=== PATIENT | female | born 1950 | race Caucasian/White ===

== ENCOUNTER → 2017-01-01 | Outpatient (CLI) | payer MEDICARE ==
[2015-02-11 10:59] VITALS: BP 143/76
[~2017-01-01] MED LIST: ASPI325T4 PO; CLON1TAB3 PO; CRESTOR20 MG PO; EZET10TA3 PO; FURO40TA4 PO; HYDR-2666 PO; LISI2.5T PO; LORA1TAB PO; METO25TA9 PO; NITR0.4T SL; OMEP20TA PO; OMEP40CA5 PO; POTA20TA12 PO; PRAS10TA9 PO; TRAZ100T12 PO; [UNRECOGNIZED DRUG - CODE] PO
--- NOTE | 2017-01-01 11:33 | KCIC ---
PROCEDURE DEXA. HISTORY Postmenopausal screening. COMPARISON None. FINDINGS BMD: (g/cm2) - AP Spine Total (L1-L4): 1.094 - Total left Hip: 0.965 T-Score: - AP Spine Total (L1-L4): 0.4 - Total left Hip: 0.2 Z-Score: - AP Spine Total (L1-L4): 2.1 - Total left Hip: 1.4 World Health Organization criteria for BMD interpretation classify patients as Normal (T-score at or above -1.0), Osteopenic (T-score between -1.0 and -2.5), or Osteoporotic (T-score at or below -2.5). IMPRESSION Normal bone mineral density in the left hip and spine. Electronically signed by: Erick Redman MD (January 01, 2017 11:31:39)
--- NOTE | 2017-01-01 12:44 | KCIC ---
Bilateral digital screening mammograms with CAD: HISTORY COMPARISON Comparison is made to previous studies dated 05/18/2011. FINDINGS Breast density category B. The skin and nipples show no abnormalities. No abnormal lymph nodes are seen in the axilla. The breast parenchyma shows scattered fibroglandular density. There appears to be a small 7 millimeter nodular density at approximately the 10 o'clock B position of the right breast. This shows no associated calcifications. Further evaluation with ultrasound is recommended. There are no other dominant masses, suspicious calcifications or architectural distortions. Benign appearing calcifications are present IMPRESSION Small nodular density at the 9 o'clock B position of the right breast measuring approximately 7 millimeters in size. Recommend further evaluation with ultrasound. This study was interpreted with the benefit of Computerized Aided Detection (CAD). Mammography is not 100% sensitive in detecting breast cancer. Therefore, a self breast exam and a clinical breast exam are very important. A negative mammogram does not negate a clinically suspicious finding and should not result in a delay in biopsying a clinically suspicious abnormality. BI-RADS category 0: Incomplete. Ultrasound followup is recommended. This patient's information has been entered into a reminder system for the patient to be notified with the results of this examination and a target date for her next mammograms. Electronically signed by: Ramona Neff MD (January 01, 2017 12:42:45)
== END | disposition home or self-care (01) ==
LOC: KCIC DEXA 10:11
PROVIDERS: ATTEND Family Medicine
DX: Z12.31 Encounter for screening mammogram for malignant neoplasm of breast (principal); Z13.820 Encounter for screening for osteoporosis; Z78.0 Asymptomatic menopausal state
CPT/HCPCS: 77080; G0202; 77067

== ENCOUNTER → 2017-01-07 | Outpatient (CLI) | payer MEDICARE ==
[2015-02-11 10:59] VITALS: BP 143/76
--- NOTE | 2017-01-07 11:10 | KCIC ---
Right breast ultrasound: Reason for examination: Nodular density on screening mammogram. Ultrasound examination of the right breast was performed in the area of mammographic concern and in the right axilla. In the 9:30 position 4 centimeters from the nipple, there is a hypoechoic lesion consistent with a complicated cyst measuring 7 millimeters in greatest dimension and showing posterior acoustic enhancement. No suspicious nodules are seen. No abnormal appearing lymph nodes are seen in the axilla. Impression: Hypoechoic circumscribed nodule consistent with a complicated cyst at the 9:30 position and corresponding to the mammographic area of concern. Recommend revaluation in 6 months with ultrasound. BI-RADS category 3: Probably benign. This patient's information has been entered into a reminder system for the patient to be notified with the results of this examination and a target date for her next mammograms. Electronically signed by: Ramona Neff MD (January 07, 2017 11:08:52)
== END | disposition home or self-care (01) ==
LOC: KCIC US 10:28
PROVIDERS: ATTEND Family Medicine
DX: R92.8 Other abnormal and inconclusive findings on diagnostic imaging of breast (principal)
CPT/HCPCS: 76641

== ENCOUNTER → 2017-07-15 | Outpatient (CLI) | payer MEDICARE ==
[2015-02-11 10:59] VITALS: BP 143/76
[~2017-07-15] MED LIST changes: -ASPI325T4 PO; +ASPI325T8 PO; +EZET10TA18 PO; -EZET10TA3 PO; -HYDR-2666 PO; +HYDR-2758 PO; +METO-239 PO; -METO25TA9 PO; -OMEP20TA PO; +OMEP20TA8 PO
--- NOTE | 2017-07-15 11:29 | KCIC ---
Right breast ultrasound: Reason for examination: Follow-up right breast nodule. Comparison is made to previous study dated 01/07/2017. Ultrasound examination of the right breast was performed in the area of previous concern at the 9:30 position and at the right axilla. There continues to be a small hypoechoic lesion present measuring 3.5 mm in greatest dimension. This has decreased in size consistent with a regressing cyst. There are no new lesions identified. No abnormal appearing lymph nodes are seen in the right axilla. IMPRESSION: Decreased size of the nodule at the 9:30 position which probably represents a regressing cyst. Recommend routine mammographic follow-up. BI-RADS Category 2: Benign. "Our facility is accredited by the [employer] Mammography Program." This patient's information has been entered into a reminder system for the patient to be notified with the results of her examination and a target date for the next mammogram. Electronically signed by: Radha Neff MD (07/15/2017 11:25 AM) [id number]
== END | disposition home or self-care (01) ==
LOC: KCIC US 09:17
PROVIDERS: ATTEND Family Medicine
DX: N63.10 Unspecified lump in the right breast, unspecified quadrant (principal)
CPT/HCPCS: 76641

== ENCOUNTER 2017-09-30 13:40 | Inpatient (IN) | payer MEDICARE ==
[2017-09-30] MEDS: ASPIRIN 325 MG TABLET PO (14:18)
[2017-09-30 14:42] LABS: ADD MAN DIFF? NO
[2017-09-30 14:50] LABS: BASO # 0.1 x10^3/uL (0.0-0.2); BASO % 1 % (0-3); EOS # 0.2 x10^3/uL (0.0-0.7); EOS % 2 % (0-3); HEMATOCRIT 39.6 % (36.0-47.0); HEMOGLOBIN 13.3 g/dL (12.0-15.5); LYMPH # 2.1 x10^3/uL (1.0-4.8); LYMPH % 24 % (24-48); MEAN CORPUSCULAR HEMOGLOBIN 30 pg (25-35); MEAN CORPUSCULAR HGB CONC 34 g/dL (31-37); MEAN CORPUSCULAR VOLUME 89 fL (79-100); MONO # 0.7 x10^3/uL (0.0-1.1); MONO % 8 % (0-9); NEUT # 5.7 x10^3uL (1.8-7.7); NEUT % 65 % (31-73); PLATELET COUNT 270 x10^3/uL (140-400); RED BLOOD COUNT 4.48 x10^6/uL (3.50-5.40); RED CELL DISTRIBUTION WIDTH 14.3 % (11.5-14.5); WHITE BLOOD COUNT 8.7 x10^3/uL (4.0-11.0)
[2017-09-30 14:59] LABS: ANION GAP 9 (6-14); BLOOD UREA NITROGEN 16 mg/dL (7-20); CALCIUM 8.7 mg/dL (8.5-10.1); CARBON DIOXIDE 29 mmol/L (21-32); CHLORIDE 102 mmol/L (98-107); CREATININE 0.6 mg/dL (0.6-1.0); GFR 100.6; GLUCOSE 119 mg/dL (70-99); POTASSIUM 3.6 mmol/L (3.5-5.1); SODIUM 140 mmol/L (136-145)
[2017-09-30] MEDS: ASPIRIN CHEWABLE 81 MG TABLET. PO (15:00)
[2017-09-30 15:04] LABS: CREATINE KINASE 68 U/L (26-192); MAGNESIUM 2.1 mg/dL (1.8-2.4)
[2017-09-30 15:13] LABS: CKMB MASS 0.6 ng/mL (0.0-3.6)
[2017-09-30 15:15] LABS: CREATINE KINASE 71 U/L (26-192)
[2017-09-30 15:28] LABS: TROPONINI < 0.017 ng/mL (0.000-0.055)
[2017-09-30] MEDS: ONDANSETRON PF 4 MG/2 ML VIAL. IV (15:37)
[2017-09-30] MEDS: NITROGLYCERIN SUBLINGUAL 0.4 MG BOTTLE OF 25. SL ×3 (15:37→16:05)
[2017-09-30] MEDS ORDERED: ONDANSETRON PF 4 MG/2 ML VIAL. IV (15:45)
[2017-09-30] MEDS: fentaNYL PF VIAL 100 MCG/2 ML VIAL IV (15:56)
[2017-09-30] MEDS: FAMOTIDINE 20 MG/2 ML VIAL IVP (15:58)
[2017-09-30] MEDS: NITROGLYCERIN OINT 1 GM PACKET. TP (16:21)
[2017-09-30] MEDS: MORPHINE SULFATE 2 MG/ML DISP.SYRIN. IV ×3 (16:33→21:23)
[2017-09-30] MEDS ORDERED: ACETAMINOPHEN 325 MG TABLET. PO (17:15)
[2017-09-30] MEDS ORDERED: hydrALAZINE 20 MG/ML VIAL. IVP (17:15)
[2017-09-30] MEDS ORDERED: DOCUSATE SODIUM 100 MG CAPSULE. PO (17:15)
[2017-09-30] MEDS ORDERED: traMADol 50 MG TABLET PO (17:15)
[2017-09-30] MEDS: ENOXAPARIN 40 MG/0.4 ML SYRINGE. SQ (19:20)
[2017-09-30 19:24] LABS: TROPONINI < 0.017 ng/mL (0.000-0.055)
[2017-09-30] MEDS ORDERED: NITROGLYCERIN SUBLINGUAL 0.4 MG BOTTLE OF 25. SL (20:30)
[2017-09-30] MEDS ORDERED: FUROSEMIDE 40 MG TABLET. PO (20:30)
[2017-09-30] MEDS: EZETIMIBE 10 MG TABLET. PO (21:24)
[2017-09-30] MEDS: traZODone 100 MG TABLET. PO (21:24)
[2017-09-30] MEDS: ATORVASTATIN CALCIUM 40 MG TABLET. PO (21:24)
[2017-09-30] MEDS: METOPROLOL SUCC 24HR ER 25 MG TAB.ER.24H. PO (21:24)
[2017-09-30] MEDS: HYDROcodone/APAP 5/325MG 1 TAB TABLET PO (21:56)
[2017-09-30 22:07] LABS: TROPONINI < 0.017 ng/mL (0.000-0.055)
[2017-10-01] MEDS: MORPHINE SULFATE 2 MG/ML DISP.SYRIN. IV ×4 (00:55→23:00)
[2017-10-01] MEDS: ONDANSETRON PF 4 MG/2 ML VIAL. IV (03:59)
[2017-10-01 04:22] LABS: ADD MAN DIFF? NO
[2017-10-01 04:32] LABS: BASO % 1 % (0-3); EOS # 0.3 x10^3/uL (0.0-0.7); EOS % 4 % (0-3); HEMATOCRIT 37.8 % (36.0-47.0); HEMOGLOBIN 12.6 g/dL (12.0-15.5); LYMPH # 3.1 x10^3/uL (1.0-4.8); LYMPH % 40 % (24-48); MEAN CORPUSCULAR HEMOGLOBIN 30 pg (25-35); MEAN CORPUSCULAR HGB CONC 34 g/dL (31-37); MEAN CORPUSCULAR VOLUME 89 fL (79-100); MONO # 0.7 x10^3/uL (0.0-1.1); MONO % 9 % (0-9); NEUT # 3.7 x10^3uL (1.8-7.7); NEUT % 47 % (31-73); PLATELET COUNT 272 x10^3/uL (140-400); RED BLOOD COUNT 4.24 x10^6/uL (3.50-5.40); RED CELL DISTRIBUTION WIDTH 14.2 % (11.5-14.5); WHITE BLOOD COUNT 7.9 x10^3/uL (4.0-11.0)
[2017-10-01 04:55] LABS: ANION GAP 7 (6-14); BLOOD UREA NITROGEN 17 mg/dL (7-20); CALCIUM 8.1 mg/dL (8.5-10.1); CARBON DIOXIDE 30 mmol/L (21-32); CHLORIDE 103 mmol/L (98-107); CHOLESTEROL 119 mg/dL (0-200); CREATININE 0.7 mg/dL (0.6-1.0); GFR 84.2; GLUCOSE 106 mg/dL (70-99); HDLC 41 mg/dL (40-60); LDLC 45 mg/dL (0-100); NON-HDL CHOLESTEROL 78 mg/dL (0-129); POTASSIUM 3.2 mmol/L (3.5-5.1); SODIUM 140 mmol/L (136-145); TRIGLYCERIDES 165 mg/dL (0-150); VLDLC 33 mg/dL (0-40)
[2017-10-01 04:57] LABS: THYROID STIM HORMONE (TSH) 1.964 uIU/mL (0.358-3.74)
[2017-10-01 05:07] LABS: CHOLESTEROL/HDL RATIO 2.9
[2017-10-01] MEDS: PANTOPRAZOLE 40 MG TABLET.DR. PO (07:30)
[2017-10-01] MEDS: REGADENOSON 0.4 MG/5 ML DISP.SYRIN. IV (12:12)
[2017-10-01] MEDS: ASPIRIN 325 MG TABLET PO (13:34)
[2017-10-01] MEDS: POTASSIUM CHLORIDE 20 MEQ TABLET.ER. PO (13:34)
[2017-10-01] MEDS: HYDROcodone/APAP 5/325MG 1 TAB TABLET PO ×2 (13:35→20:32)
[2017-10-01] MEDS: METOPROLOL SUCC 24HR ER 25 MG TAB.ER.24H. PO ×2 (13:38→20:32)
[2017-10-01] MEDS: LISINOPRIL 2.5 MG TABLET PO (13:38)
[2017-10-01] MEDS: ENOXAPARIN 40 MG/0.4 ML SYRINGE. SQ (18:11)
[2017-10-01] MEDS: ATORVASTATIN CALCIUM 40 MG TABLET. PO (20:31)
[2017-10-01] MEDS: EZETIMIBE 10 MG TABLET. PO (20:32)
[2017-10-01] MEDS: clonazePAM 1 MG TABLET PO (20:32)
[2017-10-01] MEDS: traZODone 100 MG TABLET. PO (23:01)
[2017-10-02] MEDS: PANTOPRAZOLE 40 MG TABLET.DR. PO (08:17)
[2017-10-02] MEDS: ASPIRIN 325 MG TABLET PO (08:17)
[2017-10-02] MEDS: POTASSIUM CHLORIDE 20 MEQ TABLET.ER. PO (08:17)
[2017-10-02] MEDS: METOPROLOL SUCC 24HR ER 25 MG TAB.ER.24H. PO ×2 (08:18→20:40)
[2017-10-02] MEDS: LISINOPRIL 2.5 MG TABLET PO (08:18)
[2017-10-02] MEDS: clonazePAM 1 MG TABLET PO (09:19)
[2017-10-02] MEDS: HYDROcodone/APAP 5/325MG 1 TAB TABLET PO ×2 (09:20→14:03)
[2017-10-02] MEDS: ALPRAZolam 0.25 MG TABLET PO ×2 (14:04→20:40)
[2017-10-02] MEDS: ENOXAPARIN 40 MG/0.4 ML SYRINGE. SQ (17:27)
[2017-10-02] MEDS: ATORVASTATIN CALCIUM 40 MG TABLET. PO (20:40)
[2017-10-02] MEDS: traZODone 100 MG TABLET. PO (20:40)
[2017-10-02] MEDS: EZETIMIBE 10 MG TABLET. PO (20:40)
[2017-10-02] MEDS: MORPHINE SULFATE 2 MG/ML DISP.SYRIN. IV (22:09)
[2017-10-03] MEDS: HYDROcodone/APAP 5/325MG 1 TAB TABLET PO ×2 (00:16→20:35)
[2017-10-03] MEDS: MORPHINE SULFATE 2 MG/ML DISP.SYRIN. IV ×2 (01:14→22:27)
[2017-10-03] MEDS ORDERED: MORPHINE SULFATE 2 MG/ML DISP.SYRIN. IV (07:00)
[2017-10-03] MEDS ORDERED: HYDROmorphone 2 MG/ML VIAL IV (07:00)
[2017-10-03] MEDS ORDERED: LIDOCAINE 1% PF 2 ML VIAL. ID ×2 (07:00→08:00)
[2017-10-03] MEDS: IV RINGERS,LACTATED 1000ML 1,000 ML IV ×3 (07:46→15:46)
[2017-10-03] MEDS ORDERED: fentaNYL PF VIAL 100 MCG/2 ML VIAL IV ×2 (08:00)
[2017-10-03] MEDS ORDERED: MIDAZOLAM HCL/PF 2 MG/2 ML VIAL. IV (08:00)
[2017-10-03] MEDS: ALPRAZolam 0.25 MG TABLET PO ×3 (09:00→20:34)
[2017-10-03] MEDS ORDERED: LIDOCAINE 2% PF Vial for OR 5 ML VIAL. (10:59)
[2017-10-03] MEDS ORDERED: PROPOFOL 20 ML IV (10:59)
[2017-10-03] MEDS: SUCRALFATE 1 GM TABLET. PO ×3 (12:22→20:34)
[2017-10-03] MEDS: ASPIRIN 325 MG TABLET PO (12:22)
[2017-10-03] MEDS: LISINOPRIL 2.5 MG TABLET PO (12:22)
[2017-10-03] MEDS: METOPROLOL SUCC 24HR ER 25 MG TAB.ER.24H. PO ×2 (12:23→20:35)
[2017-10-03] MEDS: POTASSIUM CHLORIDE 20 MEQ TABLET.ER. PO (12:23)
[2017-10-03] MEDS: PANTOPRAZOLE 40 MG TABLET.DR. PO (16:43)
[2017-10-03] MEDS: ATORVASTATIN CALCIUM 40 MG TABLET. PO (20:34)
[2017-10-03] MEDS: traZODone 100 MG TABLET. PO (20:34)
[2017-10-03] MEDS: ENOXAPARIN 40 MG/0.4 ML SYRINGE. SQ (20:34)
[2017-10-03] MEDS: EZETIMIBE 10 MG TABLET. PO (20:35)
[2017-10-03] MEDS: PROCHLORPERAZINE 10 MG/2 ML VIAL. IV (22:27)
[2017-10-04] MEDS: PANTOPRAZOLE 40 MG TABLET.DR. PO (07:57)
[2017-10-04] MEDS: SUCRALFATE 1 GM TABLET. PO ×2 (07:57→11:39)
[2017-10-04] MEDS: ASPIRIN 325 MG TABLET PO (09:19)
[2017-10-04] MEDS: ALPRAZolam 0.25 MG TABLET PO ×2 (09:19→13:19)
[2017-10-04] MEDS: LISINOPRIL 2.5 MG TABLET PO (09:19)
[2017-10-04] MEDS: POTASSIUM CHLORIDE 20 MEQ TABLET.ER. PO (09:20)
[2017-10-04] MEDS: METOPROLOL SUCC 24HR ER 25 MG TAB.ER.24H. PO (09:20)
[2017-10-04] MEDS: ENOXAPARIN 40 MG/0.4 ML SYRINGE. SQ (09:22)
[2017-10-04] MEDS: ONDANSETRON PF 4 MG/2 ML VIAL. IV (13:19)
[2017-10-04] MEDS: ONDANSETRON ODT 4 MG TAB.RAPDIS. PO (15:52)
== END 2017-10-04 16:12 | disposition home or self-care (01) | DRG 392 ==
LOC: ER 13:40 → 5 NORTH 15:42
PROC: 0DB68ZX Excision of Stomach, Via Natural or Artificial Opening Endoscopic, Diagnostic (ICD-10-PCS; principal; 2017-10-03 11:00)
DX: K21.0 Gastro-esophageal reflux disease with esophagitis (principal); I31.3 Pericardial effusion (noninflammatory); I25.110 Atherosclerotic heart disease of native coronary artery with unstable angina pectoris; K76.0 Fatty (change of) liver, not elsewhere classified; Z68.41 Body mass index [BMI] 40.0-44.9, adult; K22.8 Other specified diseases of esophagus; E66.9 Obesity, unspecified; E78.00 Pure hypercholesterolemia, unspecified; E78.5 Hyperlipidemia, unspecified; F32.9 Major depressive disorder, single episode, unspecified; F41.9 Anxiety disorder, unspecified; G89.29 Other chronic pain; I10 Essential (primary) hypertension; I34.0 Nonrheumatic mitral (valve) insufficiency; G43.909 Migraine, unspecified, not intractable, without status migrainosus; K29.70 Gastritis, unspecified, without bleeding; G47.30 Sleep apnea, unspecified; K57.30 Diverticulosis of large intestine without perforation or abscess without bleeding; K64.9 Unspecified hemorrhoids; N60.09 Solitary cyst of unspecified breast; M19.90 Unspecified osteoarthritis, unspecified site; Z79.82 Long term (current) use of aspirin; Z79.899 Other long term (current) drug therapy; Z80.0 Family history of malignant neoplasm of digestive organs; Z87.891 Personal history of nicotine dependence; Z90.49 Acquired absence of other specified parts of digestive tract; Z90.710 Acquired absence of both cervix and uterus; Z95.5 Presence of coronary angioplasty implant and graft; Z88.8 Allergy status to other drugs, medicaments and biological substances; Z91.013 Allergy to seafood
CPT/HCPCS: 36415; 71045; 78452; 80048; 80061; 82550; 82553; 83735; 84443; 84484; 85025; 88305; 88342; 93005; 93017; 93306; 96374; 96375; 99285; 99285-25; A9500; J0780; J1650; J2270; J2405; J2704; J2785; J3010; J7120; Q0162; S0028

== ENCOUNTER 2018-03-21 07:00 | Emergency (ER) | payer MEDICARE ==
[2018-03-21] MEDS: diphenhydrAMINE 50 MG/ML VIAL IVP (09:19)
[2018-03-21] MEDS: PROCHLORPERAZINE 10 MG/2 ML VIAL. IV (09:19)
[2018-03-21 09:40] LABS: ADD MAN DIFF? NO
[2018-03-21 09:43] LABS: BASO % 1 % (0-3); EOS # 0.2 x10^3/uL (0.0-0.7); EOS % 3 % (0-3); HEMATOCRIT 41.5 % (36.0-47.0); LYMPH # 1.7 x10^3/uL (1.0-4.8); LYMPH % 26 % (24-48); MEAN CORPUSCULAR HEMOGLOBIN 30 pg (25-35); MEAN CORPUSCULAR HGB CONC 34 g/dL (31-37); MEAN CORPUSCULAR VOLUME 90 fL (79-100); MONO # 0.5 x10^3/uL (0.0-1.1); MONO % 7 % (0-9); NEUT # 4.2 x10^3uL (1.8-7.7); NEUT % 64 % (31-73); PLATELET COUNT 267 x10^3/uL (140-400); RED BLOOD COUNT 4.64 x10^6/uL (3.50-5.40); RED CELL DISTRIBUTION WIDTH 14.4 % (11.5-14.5); WHITE BLOOD COUNT 6.6 x10^3/uL (4.0-11.0)
[2018-03-21] MEDS: IV NORMAL SALINE 1000ML BAG 1,000 ML IV (09:48)
[2018-03-21] MEDS: KETOROLAC 30 MG/ML INJ. IV (09:49)
[2018-03-21 10:01] LABS: ANION GAP 8 (6-14); BLOOD UREA NITROGEN 11 mg/dL (7-20); CALCIUM 10.1 mg/dL (8.5-10.1); CARBON DIOXIDE 27 mmol/L (21-32); CHLORIDE 103 mmol/L (98-107); CREATININE 0.7 mg/dL (0.6-1.0); GLUCOSE 119 mg/dL (70-99); POTASSIUM 4.2 mmol/L (3.5-5.1); SODIUM 138 mmol/L (136-145)
== END 2018-03-21 11:21 | disposition home or self-care (01) ==
LOC: ER 07:00
DX: G43.909 Migraine, unspecified, not intractable, without status migrainosus (principal); E78.00 Pure hypercholesterolemia, unspecified; K21.9 Gastro-esophageal reflux disease without esophagitis; F32.9 Major depressive disorder, single episode, unspecified; F41.9 Anxiety disorder, unspecified; I10 Essential (primary) hypertension; I25.2 Old myocardial infarction; Z87.891 Personal history of nicotine dependence; Z95.5 Presence of coronary angioplasty implant and graft; Z88.2 Allergy status to sulfonamides; Z88.8 Allergy status to other drugs, medicaments and biological substances; Z91.013 Allergy to seafood
CPT/HCPCS: 36415; 70450; 80048; 85025; 96361; 96374; 96375; 99285-25; J0780; J1200; J1885; J7030

== ENCOUNTER → 2018-04-23 | Outpatient (CLI) | payer MEDICARE ==
[2018-03-21 11:15] VITALS: BP 156/79
[~2018-04-23] MED LIST changes: -CLON1TAB3 PO; +CLON1TAB4 PO; +PANT20TA2 PO; +SUCR1TAB35 PO; +TRAZ-86 PO; -TRAZ100T12 PO
[2018-04-23] MEDS: ZOLPIDEM 5 MG TABLET. PO ONE (22:30)
[2018-04-24] MEDS: ACETAMINOPHEN 500 MG TABLET PO ONE (03:15)
--- NOTE | 2018-04-24 13:29 | SLEEP ---
DATE OF STUDY: 04/23/2018 ATTENDING PHYSICIAN: Dr. Lisa Dewitt. The patient is 67 years old who weighs 170 pounds with a BMI of 34. The patient's [place] score was 6. The patient underwent a diagnostic sleep study at [facility]. During the night of study, the patient spent 420 minutes in bed and slept for 3 and 4 minutes with a sleep efficiency of 72%. Sleep latency was 31 minutes with absent REM sleep. Overall, sleep architecture showed increased stage I sleep, reduced stage II sleep, increased slow wave, which was 41% of total sleep time and absent REM sleep. During the night of study, the patient had 2 obstructive apneas, no mixed apneas and 2 central apneas. There were 17 hypopneas. The patient's apnea hypopnea index was 4 per hour, supine index 3 per hour and REM index was not available due to lack of REM sleep. EKG monitoring revealed normal sinus rhythm. No sustained arrhythmias were observed. Average heart rate was 94 beats per minute while asleep. Nocturnal oximetry study revealed a mean oxygen saturation of 90% with the lowest of 86%. 20% of time oxygen saturation remained between 80% and 89% and mostly between 88-90% suggesting hypoventilation. PLMS were seen at index of 17 per hour and 2 per hour caused EEG arousals. Due to low AHI, the patient did not meet the split night criteria for CPAP initiation. IMPRESSION: 1. No clinically significant sleep disorder breathing. The patient's AHI for the entire night was 4 per hour. 2. Mild nocturnal hypoxia related to hypoventilation. 3. Mild period limb movement of sleep. RECOMMENDATIONS: 1. The patient did not meet the split night criteria for CPAP initiation. 2. Weight loss is advised. 3. Avoid [employer] depressants. 4. PLMS does not need to be treated unless the patient has symptoms of restless legs during the day. ANNELIESE VARELA MD DR: SKYE/lorena JOB#: [id number] / [id number] LISA Ding MD
== END | disposition home or self-care (01) ==
LOC: SLPLAB 18:20
PROVIDERS: ATTEND Family Medicine
DX: G47.34 Idiopathic sleep related nonobstructive alveolar hypoventilation (principal); R35.1 Nocturia; I10 Essential (primary) hypertension; E78.00 Pure hypercholesterolemia, unspecified; K21.9 Gastro-esophageal reflux disease without esophagitis; I25.10 Atherosclerotic heart disease of native coronary artery without angina pectoris; Z90.49 Acquired absence of other specified parts of digestive tract; Z87.891 Personal history of nicotine dependence
CPT/HCPCS: 95810

== ENCOUNTER 2019-07-13 12:24 | Observation (INO) | payer MEDICARE ==
[~2019-07-13] VITALS: Ht 149.9 cm; Wt 86.3 kg
[~2019-07-13 12:24] MED LIST changes: -CLON1TAB4 PO; +CLONAZEPAM1 MG PO; -EZET10TA18 PO; +EZET10TA20 PO; -HYDR-2758 PO; +HYDR-2761 PO; -NITR0.4T SL; +NITR0.4T24 SL; +OMEP40CA45 PO; -OMEP40CA5 PO
[2019-07-13] MEDS ORDERED: diazePAM 5 MG TABLET PO ONE (13:00)
[2019-07-13] MEDS ORDERED: ASPIRIN CHEWABLE 81 MG TABLET. PO ONE (13:00)
[2019-07-13] MEDS ORDERED: MORPHINE SULFATE 4 MG/ML VIAL. IV ONE ×2 (13:00→17:30)
--- NOTE | 2019-07-13 13:01 | PHYS DOC ---
Past Medical History Past Medical History: Anxiety, Depression, GERD, High Cholesterol, Hypertension, ME, Migraines Past Surgical History: Angioplasty, Appendectomy, Cholecystectomy, Hysterectomy, Pacemaker, Other Additional Past Surgical Histo: stents x7,hiatal hernia Alcohol Use: None Drug Use: None Adult General Chief Complaint Chief Complaint: BACK INJURY HPI HPI Patient is a 68-year-old female who presents to the emergency department for evaluation. The patient states that she began having some upper back pain yesterday, left parascapular pain, which radiated towards her left arm and an teriorly towards her chest. The pain is worse with movement, as well as with physical exertion. She denies any shortness breath, nausea, vomiting, or diaphoresis. She went to a chiropractor, who found her blood pressure be elevated, and sent the patient to the emergency department. The patient has a history of hypertension but states that she did not take her antihypertensive medications today. EMS administered 2 nitroglycerin in route, which brought the patient's blood pressure down from 200 systolic to about 130 systolic. The patient does not have any dizziness, lightheadedness, numbness, or weakness. There are no alleviating or exacerbating factors to her symptoms, except as noted above. She has a history of prior coronary artery disease and states that her current symptoms feel somewhat similar to her prior cardiac events. Assuming a negative troponin, her HEART score is a 5. Review of Systems Review of Systems Constitutional: Denies fever or chills [] Eyes: Denies change in visual acuity, redness, or eye pain [] HENT: Denies nasal congestion or sore throat [] Respiratory: Denies cough or shortness of breath [] Cardiovascular: No additional information not addressed in HPI [] GI: Denies abdominal pain, nausea, vomiting, bloody stools or diarrhea [] : Denies dysuria or hematuria [] Musculoskeletal: Denies neck pain or joint pain [] Integument: Denies rash or skin lesions [] Neurologic: Denies headache, focal weakness or sensory changes [] Endocrine: Denies polyuria or polydipsia [] All other systems were reviewed and found to be within normal limits, except as documented in this note. Current Medications Current Medications Current Medications Medications (Trade) Dose Ordered Sig/Jeannine Start Time Stop Time Status Last Admin Dose Admin Aspirin (Children'S Aspirin) 324 mg 1X ONCE 07/13/19 13:00 07/13/19 13:01 DC Diazepam (Valium) 5 mg 1X ONCE 07/13/19 13:00 07/13/19 13:01 DC 07/13/19 13:47 5 MG Morphine Sulfate (Morphine Sulfate) 4 mg 1X ONCE 07/13/19 13:00 07/13/19 13:01 DC 07/13/19 13:50 4 MG Nitroglycerin (Nitro-Bid Oint) 1 inch 1X ONCE 07/13/19 13:15 07/13/19 13:16 DC 07/13/19 13:48 1 INCH Allergies Allergies Allergies Coded Allergies Type Severity Reaction Last Updated Verified shellfish derived Allergy Intermediate SEE COMMENT FOR IODINE 10/03/17 Yes sulfamethoxazole Allergy Intermediate 10/03/17 Yes trimethoprim Allergy Intermediate 10/03/17 Yes Physical Exam Physical Exam PHYSICAL EXAM: CONSTITUTIONAL: Well developed, well nourished HEAD: normocephalic, atraumatic EENT: PERRL, EOMI. Conjunctivae normal color, sclerae non-icteric; moist mucous membranes. NECK: Supple, non-tender; no meningismus. LUNGS: Lungs CTA, breathing even and unlabored. Normal air movement. HEART: Regular rate and rhythm, no murmur CHEST: No deformity; non-tender ABDOMEN: The abdomen is soft, and non-tender, no masses or bruits. EXTREM: Normal ROM; no deformity, no calf tenderness. Normal pulses palpable in all extremities. There is no pedal edema. SKIN: No rash; no diaphoresis NEURO: Alert; normal speech and cognition; CN's grossly intact; strength grossly intact without focal deficit. BACK: No CVA TTP. There is mild tenderness to palpation to left parascapular area, which reproduces the patient's pain.There is no bony tenderness to palpation of the thoracic or lumbar spine. Current Patient Data Vital Signs Vital Signs Date Time Temp Pulse Resp B/P (MAP) Pulse Ox O2 Delivery O2 Flow Rate FiO2 07/13/19 15:37 84 17 172/85 (114) 93 Room Air 07/13/19 12:35 98.2 98.2 Lab Values Laboratory Tests Test 07/13/19 16:25 White Blood Count 5.9 x10^3/uL (4.0-11.0) Red Blood Count 4.72 x10^6/uL (3.50-5.40) Hemoglobin 14.2 g/dL (12.0-15.5) Hematocrit 41.8 % (36.0-47.0) Mean Corpuscular Volume 89 fL (79-100) Mean Corpuscular Hemoglobin 30 pg (25-35) Mean Corpuscular Hemoglobin Concent 34 g/dL (31-37) Red Cell Distribution Width 14.3 % (11.5-14.5) Platelet Count 256 x10^3/uL (140-400) Neutrophils (%) (Auto) 57 % (31-73) Lymphocytes (%) (Auto) 32 % (24-48) Monocytes (%) (Auto) 7 % (0-9) Eosinophils (%) (Auto) 3 % (0-3) Basophils (%) (Auto) 1 % (0-3) Neutrophils # (Auto) 3.4 x10^3/uL (1.8-7.7) Lymphocytes # (Auto) 1.9 x10^3/uL (1.0-4.8) Monocytes # (Auto) 0.4 x10^3/uL (0.0-1.1) Eosinophils # (Auto) 0.2 x10^3/uL (0.0-0.7) Basophils # (Auto) 0.1 x10^3/uL (0.0-0.2) Sodium Level 137 mmol/L (136-145) Potassium Level 4.2 mmol/L (3.5-5.1) Chloride Level 103 mmol/L (98-107) Carbon Dioxide Level 28 mmol/L (21-32) Anion Gap 6 (6-14) Blood Urea Nitrogen 10 mg/dL (7-20) Creatinine 0.7 mg/dL (0.6-1.0) Estimated GFR (Cockcroft-Gault) 83.7 BUN/Creatinine Ratio 14 (6-20) Glucose Level 104 mg/dL (70-99) H Calcium Level 9.2 mg/dL (8.5-10.1) Magnesium Level 2.0 mg/dL (1.8-2.4) Total Bilirubin 0.2 mg/dL (0.2-1.0) Aspartate Amino Transferase (AST) 20 U/L (15-37) Alanine Aminotransferase (ALT) 17 U/L (14-59) Alkaline Phosphatase 105 U/L (46-116) Troponin I Quantitative < 0.017 ng/mL (0.000-0.055) AE-Xgm-P-Type Natriuretic Peptide 136 pg/mL (0-124) H Total Protein 7.1 g/dL (6.4-8.2) Albumin 3.1 g/dL (3.4-5.0) L Albumin/Globulin Ratio 0.8 (1.0-1.7) L Laboratory Tests 07/13/19 16:25 Laboratory Tests 07/13/19 16:25 EKG EKG Sinus rhythm at a rate of 86 beats for minute, leftward axis, normal intervals, nonspecific ST/T changes.[] Radiology/Procedures Radiology/Procedures PROCEDURE: PORTABLE CHEST 1V PORTABLE CHEST 1V History: Chest pain Comparison: 09/30/2017 Findings: Single view of the chest is submitted. There is again dual lead left electronic cardiac device. Cardiac silhouette is stable. There is no new lobar consolidation, pleural fluid, pneumothorax. Impression: 1. No acute radiographic abnormality is identified.[] Course & Med Decision Making Course & Med Decision Making Pertinent Labs and Imaging studies reviewed. (See chart for details) [] 5:05 PM:The patient's condition remains stable. I spoke with the hospitalist, who accepted the patient to the hospital for further evaluation and treatment. Due to the similarity between the current symptoms and the patient's reported cardiac symptoms, the patient be admitted to the hospital for further cardiac evaluation in definitively rule out Dragon Disclaimer Dragon Disclaimer This electronic medical record was generated, in whole or in part, using a voice recognition dictation system. Departure Departure Impression: Primary Impression: Chest pain Additional Impression: CAD (coronary artery disease) Disposition: 09 ADMITTED INPATIENT Admitting Physician: HIMTerese Condition: STABLE Referrals: JAZ VILLAREAL MD (PCP) Problem Qualifiers LUKE MOORE MD Jul 13, 2019 13:01
[2019-07-13] MEDS ORDERED: NITROGLYCERIN OINT 1 GM PACKET. TP ONE (13:15)
--- NOTE | 2019-07-13 13:34 | RAD ---
PORTABLE CHEST 1V History: Chest pain Comparison: 09/30/2017 Findings: Single view of the chest is submitted. There is again dual lead left electronic cardiac device. Cardiac silhouette is stable. There is no new lobar consolidation, pleural fluid, pneumothorax. Impression: 1. No acute radiographic abnormality is identified. Electronically signed by: Gerald Godwin MD (07/13/2019 1:31 PM) [id number]
[2019-07-13 16:37] LABS: BASO # 0.1 x10^3/uL (0.0-0.2); BASO % 1 % (0-3); EOS # 0.2 x10^3/uL (0.0-0.7); EOS % 3 % (0-3); HEMATOCRIT 41.8 % (36.0-47.0); HEMOGLOBIN 14.2 g/dL (12.0-15.5); LYMPH # 1.9 x10^3/uL (1.0-4.8); LYMPH % 32 % (24-48); MEAN CORPUSCULAR HEMOGLOBIN 30 pg (25-35); MEAN CORPUSCULAR HGB CONC 34 g/dL (31-37); MEAN CORPUSCULAR VOLUME 89 fL (79-100); MONO # 0.4 x10^3/uL (0.0-1.1); MONO % 7 % (0-9); NEUT # 3.4 x10^3/uL (1.8-7.7); NEUT % 57 % (31-73); PLATELET COUNT 256 x10^3/uL (140-400); RED BLOOD COUNT 4.72 x10^6/uL (3.50-5.40); RED CELL DISTRIBUTION WIDTH 14.3 % (11.5-14.5); WHITE BLOOD COUNT 5.9 x10^3/uL (4.0-11.0)
[2019-07-13 16:49] LABS: CALCIUM 9.2 mg/dL (8.5-10.1); CREATININE 0.7 mg/dL (0.6-1.0); GFR 83.7; POTASSIUM 4.2 mmol/L (3.5-5.1)
[2019-07-13 16:58] LABS: ALBUMIN 3.1 g/dL (3.4-5.0); ALBUMIN/GLOBULIN RATIO 0.8 (1.0-1.7); TOTAL BILIRUBIN 0.2 mg/dL (0.2-1.0); TOTAL PROTEIN 7.1 g/dL (6.4-8.2)
--- NOTE | 2019-07-13 17:11 | PDOC1 ---
History and Physical Date of Admission Date of Admission DATE: 07/13/19 TIME: 17:11 Identification/Chief Complaint Chief Complaint Chest and back pain Source Source: Patient History of Present Illness History of Present Illness Ms Beyer is a 68yo F w/ PMHx Anxiety, Depression, GERD, High Cholesterol, Hypertension, Migraines, CAD s/p stents x7, SSS s/p PPM, and hiatal hernia who p/w chest pain and back pain. She began having some upper back pain yesterday, left medial subscapular pain, which radiated towards her left arm and anteriorly towards her chest. The pain is worse with movement, as well as with physical exertion. She went to a chiropractor, who found her blood pressure be elevated, and sent the patient to the emergency department. She was notably 200 systolic and after NTG x2 shwe was noted 130mmHg systolic. She denies any shortness breath, nausea, vomiting, or diaphoresis. The patient does not have any dizziness, lightheadedness, numbness, or weakness. She notes her chest pain component feels similar to her prior cardiac events. EKG showed leftward axis and non-specific ST changes, no STEMI. Initial troponin negative. CXR clear On further ROS she notes the back pain was sudden and "took my breath away" and she has been c/o bilateral lower extremity pain and swelling, particularly in her right calf. She also notes her mother of a pulmonary embolism. She is being admitted for further work up. Past Medical History Cardiovascular: CAD, HTN, [place], Hyperlipidemia, Other Past Surgical History Past Surgical History: Appendectomy, Cholecystectomy, Hysterectomy, Other Family History Family History: Heart Disease Social History Smoke: No ALCOHOL: none Drugs: None Current Problem List Problem List Problems Medical Problems: (1) CAD (coronary artery disease) Status: Acute (2) Chest pain Status: Acute Current Medications Current Medications Current Medications Diazepam (Valium) 5 mg 1X ONCE PO Last administered on 07/13/19at 13:47; Start 07/13/19 at 13:00; Stop 07/13/19 at 13:01; Status DC Aspirin (Children'S Aspirin) 324 mg 1X ONCE PO ; Start 07/13/19 at 13:00; Stop 07/13/19 at 13:01; Status DC Morphine Sulfate (Morphine Sulfate) 4 mg 1X ONCE IV Last administered on 11/25/19at 13:50; Start 07/13/19 at 13:00; Stop 07/13/19 at 13:01; Status DC Nitroglycerin (Nitro-Bid Oint) 1 inch 1X ONCE TP Last administered on 07/13/19at 13:48; Start 07/13/19 at 13:15; Stop 07/13/19 at 13:16; Status DC Active Scripts Active Carafate (Sucralfate) 1 Gm Tablet 1 Tab PO QID Protonix (Pantoprazole Sodium) 20 Mg Tablet.dr 40 Mg PO BID 30 Days Erythrocin Stearate (Erythromycin Stearate) 250 Mg Tablet 250 Mg PO TIDAC 30 Days Reported Potassium Chloride 20 Meq Tab.er.prt 20 Meq PO DAILY Clonazepam 1 Mg Tablet 1 Mg PO TID PRN Aspirin 325 Mg Tablet 325 Mg PO DAILY Zetia (Ezetimibe) 10 Mg Tablet 10 Mg PO QHS Trazodone Hcl 100 Mg Tablet 150 Mg PO PRN DAILY Nitrostat (Nitroglycerin) 0.4 Mg Tab.subl 0.4 Mg SL PRN DAILY Metoprolol Succinate ( Xl ) (Metoprolol Succinate) 25 Mg Tab.er.24h 25 Mg PO BID Lisinopril 2.5 Mg Tablet 2.5 Mg PO DAILY Hydrocodone-Apap 5-325 (Hydrocodone Bit/Acetaminophen) 1 Each Tablet 1 Each PO PRN Q4HRS Furosemide 40 Mg Tablet 40 Mg PO PRN DAILY Crestor (Rosuvastatin Calcium) 20 Mg Tablet 20 Mg PO QHS Allergies Allergies: Coded Allergies: shellfish derived (Verified Allergy, Intermediate, SEE COMMENT FOR IODINE, 10/03/17) PT TOLERATES IODINE CONTRAST WITH NO PROBLEMS sulfamethoxazole (Verified Allergy, Intermediate, 10/03/17) trimethoprim (Verified Allergy, Intermediate, 10/03/17) ROS General: YES: Fatigue, Malaise; No: Chills, Night Sweats, Appetite, Other PSYCHOLOGICAL ROS: YES: Anxiety; No: Behavioral Disorder, Concentration difficultie, Decreased libido, Depression, Disorientation, Hallucinations, Hostility, Irritablity, Memory difficulties, Mood Swings, Obsessive thoughts, Physical abuse, Sexual abuse, Sleep disturbances, Suicidal ideation, Other Eyes: No Blurry vision, No Decreased vision, No Double vision, No Dry eyes, No Excessive tearing, No Eye Pain, No Itchy Eyes, No Loss of vision, No Photophobia, No Scotomata, No Uses contacts, No Uses glasses, No Other HEENT: No: Heacaches, Visual Changes, Hearing change, Nasal congestion, Nasal discharge, Oral lesions, Sinus pain, Sore Throat, Epistaxis, Sneezing, Snoring, Tinnitus, Vertigo, Vocal changes, Other ALLERGY AND IMMUNOLOGY: No: Hives, Insect Bite Sensitivity, Itchy/Watery Eyes, Nasal Congestion, Post Nasal Drip, Seasonal Allergies, Other Hematological and Lymphatic: No: Bleeding Problems, Blood Clots, Blood Transfusions, Brusing, Night Sweats, Pallor, Swollen Lymph Nodes, Other ENDOCRINE: No: Breast Changes, Galactorrhea, Hair Pattern Changes, Hot Flashes, Malaise/lethargy, Mood Swings, Palpitations, Polydipsia/polyuria, Skin Changes, Temperature Intolerance, Unexpected Weight Changes, Other Breast: No New/Changing Breast Lumps, No Nipple changes, No Nipple discharge, No Other Respiratory: YES: Shortness of breath; No: Cough, Hemoptysis, Orthopnea, Pleuritic Pain, SOB with excertion, Sputum Changes, Stridor, Tachypnea, Wheezing, Other Cardiovascular: yes Chest Pain, yes Edema; No Palpitations, No Orthopnea, No Paroxysmal Noc. Dyspnea, No Lt Headedness, No Other Gastrointestinal: No Nausea, No Vomiting, No Abdominal Pain, No Diarrhea, No Constipation, No Melena, No Hematochezia, No Other Genitourinary: No Dysuria, No Frequency, No Incontinence, No Hematuria, No Retention, No Discharge, No Urgency, No Pain, No Flank Pain, No Other, No , No , No , No , No , No , No Musculoskeletal: Yes Joint Pain, Yes Muscle Pain; No Gait Disturbance, No Joint Stiffness, No Joint Swelling, No Muscular Weakness, No Pain In:, No Swelling In:, No Other Neurological: No Behavorial Changes, No Bowel/Bladder ControlChng, No Confusion, No Dizziness, No Gait Disturbance, No Headaches, No Impaired Coord/balance, No Memory Loss, No Numbness/Tingling, No Seizures, No Speech Problems, No Tremors, No Visual Changes, No Weakness, No Other Skin: No Dry Skin, No Eczema, No Hair Changes, No Lumps, No Mole Changes, No Mottling, No Nail Changes, No Pruritus, No Rash, No Skin Lesion Changes, No Other, No Acne Physical Exam General: Alert, Oriented X3, Cooperative, No acute distress HEENT: Atraumatic, PERRLA, EOMI, Mucous membr. moist/pink Lungs: Clear to auscultation, Normal air movement Heart: S1S2, RRR, no thrills, no rubs, no gallops, no murmurs, other (Pain not reproducible) Abdomen: Normal bowel sounds, Soft, No tenderness, No hepatosplenomegaly, No masses Rectal Exam: not examined Skin: No rashes, No breakdown, No significant lesion Neuro: Normal gait, Normal speech, Strength at 5/5 X4 ext, Normal tone, Sensation intact, Cranial nerves 3-12 NL, Reflexes 2+ Psych/Mental Status: Mental status NL, Mood NL Vitals Vitals Vital Signs Date Time Temp Pulse Resp B/P (MAP) Pulse Ox O2 Delivery O2 Flow Rate FiO2 07/13/19 15:37 84 17 172/85 (114) 93 Room Air 07/13/19 12:35 98.2 98.2 Labs Labs Laboratory Tests Test 07/13/19 16:25 White Blood Count 5.9 x10^3/uL (4.0-11.0) Red Blood Count 4.72 x10^6/uL (3.50-5.40) Hemoglobin 14.2 g/dL (12.0-15.5) Hematocrit 41.8 % (36.0-47.0) Mean Corpuscular Volume 89 fL (79-100) Mean Corpuscular Hemoglobin 30 pg (25-35) Mean Corpuscular Hemoglobin Concent 34 g/dL (31-37) Red Cell Distribution Width 14.3 % (11.5-14.5) Platelet Count 256 x10^3/uL (140-400) Neutrophils (%) (Auto) 57 % (31-73) Lymphocytes (%) (Auto) 32 % (24-48) Monocytes (%) (Auto) 7 % (0-9) Eosinophils (%) (Auto) 3 % (0-3) Basophils (%) (Auto) 1 % (0-3) Neutrophils # (Auto) 3.4 x10^3/uL (1.8-7.7) Lymphocytes # (Auto) 1.9 x10^3/uL (1.0-4.8) Monocytes # (Auto) 0.4 x10^3/uL (0.0-1.1) Eosinophils # (Auto) 0.2 x10^3/uL (0.0-0.7) Basophils # (Auto) 0.1 x10^3/uL (0.0-0.2) Sodium Level 137 mmol/L (136-145) Potassium Level 4.2 mmol/L (3.5-5.1) Chloride Level 103 mmol/L (98-107) Carbon Dioxide Level 28 mmol/L (21-32) Anion Gap 6 (6-14) Blood Urea Nitrogen 10 mg/dL (7-20) Creatinine 0.7 mg/dL (0.6-1.0) Estimated GFR (Cockcroft-Gault) 83.7 BUN/Creatinine Ratio 14 (6-20) Glucose Level 104 mg/dL (70-99) Calcium Level 9.2 mg/dL (8.5-10.1) Magnesium Level 2.0 mg/dL (1.8-2.4) Total Bilirubin 0.2 mg/dL (0.2-1.0) Aspartate Amino Transf (AST/SGOT) 20 U/L (15-37) Alanine Aminotransferase (ALT/SGPT) 17 U/L (14-59) Alkaline Phosphatase 105 U/L (46-116) Troponin I Quantitative < 0.017 ng/mL (0.000-0.055) PH-Wqn-W-Type Natriuretic Peptide 136 pg/mL (0-124) Total Protein 7.1 g/dL (6.4-8.2) Albumin 3.1 g/dL (3.4-5.0) Albumin/Globulin Ratio 0.8 (1.0-1.7) Laboratory Tests Test 07/13/19 16:25 White Blood Count 5.9 x10^3/uL (4.0-11.0) Red Blood Count 4.72 x10^6/uL (3.50-5.40) Hemoglobin 14.2 g/dL (12.0-15.5) Hematocrit 41.8 % (36.0-47.0) Mean Corpuscular Volume 89 fL (79-100) Mean Corpuscular Hemoglobin 30 pg (25-35) Mean Corpuscular Hemoglobin Concent 34 g/dL (31-37) Red Cell Distribution Width 14.3 % (11.5-14.5) Platelet Count 256 x10^3/uL (140-400) Neutrophils (%) (Auto) 57 % (31-73) Lymphocytes (%) (Auto) 32 % (24-48) Monocytes (%) (Auto) 7 % (0-9) Eosinophils (%) (Auto) 3 % (0-3) Basophils (%) (Auto) 1 % (0-3) Neutrophils # (Auto) 3.4 x10^3/uL (1.8-7.7) Lymphocytes # (Auto) 1.9 x10^3/uL (1.0-4.8) Monocytes # (Auto) 0.4 x10^3/uL (0.0-1.1) Eosinophils # (Auto) 0.2 x10^3/uL (0.0-0.7) Basophils # (Auto) 0.1 x10^3/uL (0.0-0.2) Sodium Level 137 mmol/L (136-145) Potassium Level 4.2 mmol/L (3.5-5.1) Chloride Level 103 mmol/L (98-107) Carbon Dioxide Level 28 mmol/L (21-32) Anion Gap 6 (6-14) Blood Urea Nitrogen 10 mg/dL (7-20) Creatinine 0.7 mg/dL (0.6-1.0) Estimated GFR (Cockcroft-Gault) 83.7 BUN/Creatinine Ratio 14 (6-20) Glucose Level 104 mg/dL (70-99) Calcium Level 9.2 mg/dL (8.5-10.1) Magnesium Level 2.0 mg/dL (1.8-2.4) Total Bilirubin 0.2 mg/dL (0.2-1.0) Aspartate Amino Transf (AST/SGOT) 20 U/L (15-37) Alanine Aminotransferase (ALT/SGPT) 17 U/L (14-59) Alkaline Phosphatase 105 U/L (46-116) Troponin I Quantitative < 0.017 ng/mL (0.000-0.055) SU-Wrw-A-Type Natriuretic Peptide 136 pg/mL (0-124) Total Protein 7.1 g/dL (6.4-8.2) Albumin 3.1 g/dL (3.4-5.0) Albumin/Globulin Ratio 0.8 (1.0-1.7) Images Images CXR - There is again dual lead left electronic cardiac device. Cardiac silhouette is stable. There is no new lobar consolidation, pleural fluid, pneumothorax. VTE Prophylaxis Ordered VTE Prophylaxis Devices: Yes VTE Pharmacological Prophylaxi: Yes Assessment/Plan Assessment/Plan A/P: Chest pain - high risk for ACS, with d dimer elevated will check venous dopplers, CTPA as well. trend troponins, telemetry overnight. Consult cardiology Left back pain - thoracic pain paraspinal, subscapular, only mildly reproducible Bilateral leg pain - with her extensive cardiac history she likely has PVD. With her chest pain and elevated d dimer, will check venous dopplers for DVT first. Likely needs arterial dopplers as well CAD s/p stents x7 - high risk ACS given her history. Consult cardiology. trend troponins SSS s/p PPM - may need device interrogation Anxiety with Depression - she also has insomnia, has requested to take 300mg trazodone qhs like she takes at home and belsomra GERD - cont H2 yaniv High Cholesterol - cont statin Hypertension - cont home meds Migraines - prn nsaids FEN - Cardiac diet PPX - lovenox FULL CODE Dispo - inpatient for high risk ACS chest pain, elevated d dimer, moderate PE risk RAFAEL GLOVER MD Jul 13, 2019 17:11
[2019-07-13] MEDS ORDERED: NITROGLYCERIN SUBLINGUAL 0.4 MG BOTTLE OF 25. SL SCH (17:30)
[2019-07-13] MEDS ORDERED: ONDANSETRON PF 4 MG/2 ML VIAL. IM ONE (17:30)
[2019-07-13] MEDS: HYDROcodone/APAP 5/325MG 1 TAB TABLET PO PRN (17:48)
[2019-07-13] MEDS: PANTOPRAZOLE 40 MG TABLET.DR. PO SCH (18:40)
[2019-07-13] MEDS: SUCRALFATE 1 GM TABLET. PO SCH (18:40)
[2019-07-13 19:10] VITALS: BP 156/99
[2019-07-13] MEDS ORDERED: MORPHINE SULFATE 4 MG/ML VIAL. IV PRN (20:30)
[2019-07-13] MEDS ORDERED: EZETIMIBE 10 MG TABLET. PO SCH (21:00)
[2019-07-13] MEDS ORDERED: ENOXAPARIN 40 MG/0.4 ML SYRINGE. SQ SCH (21:00)
[2019-07-13] MEDS ORDERED: traZODone 100 MG TABLET. PO SCH (21:00)
[2019-07-13] MEDS ORDERED: ATORVASTATIN CALCIUM 40 MG TABLET. PO SCH (21:00)
[2019-07-13 23:12] VITALS: BP 144/87
[2019-07-13] MEDS ORDERED: CONTRAST GIVEN. MC PRN (23:15)
[2019-07-13] MEDS ORDERED: clonazePAM 0.5 MG TABLET PO PRN (23:15)
[2019-07-13] MEDS ORDERED: IOHEXOL 350 MG/ML 100 ML VIAL. IV ONE (23:30)
[2019-07-14] MEDS: LISINOPRIL 5 MG TABLET. PO SCH ×2 (00:17→08:41)
[2019-07-14] MEDS: SUCRALFATE 1 GM TABLET. PO SCH ×4 (00:17→16:30)
[2019-07-14] MEDS: HYDROcodone/APAP 5/325MG 1 TAB TABLET PO PRN ×2 (01:05→08:40)
[2019-07-14 03:56] VITALS: BP 116/67
[2019-07-14 04:47] LABS: CALCIUM 8.7 mg/dL (8.5-10.1); CREATININE 0.8 mg/dL (0.6-1.0); GFR 71.8; POTASSIUM 3.7 mmol/L (3.5-5.1)
--- NOTE | 2019-07-14 06:18 | EKG ---
[facility] [address] [place] [address] Test Date: 2019-07-13 Test Time: 12:44:05 Pat Name: TONNY FABIAN Department: Room: [facility] Gender: F Customer Support Representative: : [id number] Requested By: LUKE MOORE Order Number: [id number] Reading MD: Jin Ramirez MD Measurements Intervals [place] Rate: 85 P: 52 AR: 178 QRS: 0 QRSD: 88 T: 1 QT: 382 QTc: 460 Interpretive Statements SINUS RHYTHM LEFTWARD AXIS QRS(T) CONTOUR ABNORMALITY CONSISTENT WITH INFERIOR INFARCT AGE UNDETERMINED Electronically Signed On 07-14-2019 14:59:55 OVEN BUILDER by Jin Ramirez MD
[2019-07-14] MEDS ORDERED: BENZOCAINE/MENTHOL LOZENGE. PO PRN (06:45)
[2019-07-14 07:00] VITALS: BP 104/59
--- NOTE | 2019-07-14 07:28 | NUR ---
called consult to Dr. Ramirez at this time
--- NOTE | 2019-07-14 08:14 | PDOC ---
PROGRESS NOTES History of Present Illness History of Present Illness VTE Prophylaxis Ordered VTE Prophylaxis Devices: Yes VTE Pharmacological Prophylaxi: Yes DISCHARGE DX Assessment/Plan A/P: Chest pain - high risk for ACS, with d dimer elevated will check venous dopplers, CTPA as well. trend troponins, telemetry overnight. Consult cardiology OK WITH D/C 07/14 Left back pain - thoracic pain paraspinal, subscapular, only mildly reproducible Bilateral leg pain - with her extensive cardiac history she likely has PVD. With her chest pain and elevated CAD s/p stents x7 - high risk ACS given her history. Consult cardiology. trend troponins SSS s/p PPM - may need device interrogation Anxiety with Depression - she also has insomnia, has requested to take 300mg trazodone qhs like she takes at home and belsomra GERD - cont H2 yaniv High Cholesterol - cont statin Hypertension - cont home meds Migraines - prn nsaids FEN - Cardiac diet PPX - lovenox FULL CODE CARDIOLOGY CONSULT Dispo - inpatient for high risk ACS chest pain, elevated d dimer, moderate PE risk MPI NEG, BACK PAIN BETTER HOME 07/14 D/C PLANNING 24 MIN Vitals Vitals Vital Signs Date Time Temp Pulse Resp B/P (MAP) Pulse Ox O2 Delivery O2 Flow Rate FiO2 07/14/19 07:58 Room Air 07/14/19 07:00 98.0 95 16 104/59 (74) 93 98.0 Physical Exam General: Alert, Oriented X3, Cooperative, No acute distress Lungs: Clear Abdomen: Normal bowel sounds, Soft, No tenderness, No hepatosplenomegaly, No masses Skin: No rashes, No breakdown, No significant lesion Labs LABS STATUS: ADM IN ORD. PHYSICIAN: RAFAEL GLOVER MD REASON: Chest and back pain, tachycardia, elevated d dimer PROCEDURE: CT ANGIOGRAPHY CHEST EXAM: CT chest with contrast - pulmonary embolus protocol CLINICAL HISTORY: Chest and back pain, tachycardia, elevated d dimer COMPARISON: None. TECHNIQUE: CT of the chest following the administration of intravenous contrast during the pulmonary arterial phase. Axial, coronal and sagittal reformatted images were generated including MIP images. ---PQRS compliance statement - One or more of the following individualized dose reduction techniques were utilized for this study: 1. Automated exposure control 2. Adjustment of the mA and/or kV according to patient size 3. Use of iterative reconstruction technique--- FINDINGS: CHEST: Diagnostic quality: Suboptimal contrast bolus timing. Pulmonary emboli: No pulmonary emboli to the level of the lobar branches. More peripheral vessels are not well assessed. Right heart strain: None Pulmonary arteries: Normal in caliber. Small to moderate hiatal hernia. Heart is not enlarged. No pericardial effusion. Coronary artery calcifications are seen. Pacer leads are seen within the heart. Prominent pericardial recess these are seen. No mediastinal lymphadenopathy. Prominent bilateral hilar lymph nodes are seen measuring less than 1 cm in short axis. Dependent opacities bilaterally likely atelectasis. Emphysematous changes are seen. No suspicious lung nodule or mass is noted. Visualized Upper abdomen: Cholecystectomy clips are seen. Bones: MIP reconstructions limit the evaluation of the osseous structures. Within these constraints, no definite aggressive osseous lesion is identified. Degenerative changes of the spine are seen. IMPRESSION: 1. Suboptimal contrast bolus timing. Within these constraints, no pulmonary emboli to the level of the lobar branches. More peripheral vessels are not well assessed. 2. Emphysematous changes are seen bilaterally. 3. No lobar consolidation. Minimal dependent opacities likely atelectasis. Electronically signed by: Maco Falcon MD (07/14/2019 8:28 AM) [id number] PORTABLE CHEST 1V History: Chest pain Comparison: 09/30/2017 Findings: Single view of the chest is submitted. There is again dual lead left electronic cardiac device. Cardiac silhouette is stable. There is no new lobar consolidation, pleural fluid, pneumothorax. Impression: 1. No acute radiographic abnormality is identified. Electronically signed by: José Luz MD (07/13/2019 1:31 PM) [id number] DICTATED and SIGNED BY: JOSÉ LUZ MD DATE: 07/13/19 1331 Laboratory Tests Test 07/13/19 16:25 07/13/19 20:40 07/13/19 23:20 07/14/19 03:35 White Blood Count 5.9 x10^3/uL (4.0-11.0) Red Blood Count 4.72 x10^6/uL (3.50-5.40) Hemoglobin 14.2 g/dL (12.0-15.5) Hematocrit 41.8 % (36.0-47.0) Mean Corpuscular Volume 89 fL (79-100) Mean Corpuscular Hemoglobin 30 pg (25-35) Mean Corpuscular Hemoglobin Concent 34 g/dL (31-37) Red Cell Distribution Width 14.3 % (11.5-14.5) Platelet Count 256 x10^3/uL (140-400) Neutrophils (%) (Auto) 57 % (31-73) Lymphocytes (%) (Auto) 32 % (24-48) Monocytes (%) (Auto) 7 % (0-9) Eosinophils (%) (Auto) 3 % (0-3) Basophils (%) (Auto) 1 % (0-3) Neutrophils # (Auto) 3.4 x10^3/uL (1.8-7.7) Lymphocytes # (Auto) 1.9 x10^3/uL (1.0-4.8) Monocytes # (Auto) 0.4 x10^3/uL (0.0-1.1) Eosinophils # (Auto) 0.2 x10^3/uL (0.0-0.7) Basophils # (Auto) 0.1 x10^3/uL (0.0-0.2) D-Dimer (Arlene) 0.99 ug/mlFEU (0.00-0.50) Sodium Level 137 mmol/L (136-145) 137 mmol/L (136-145) Potassium Level 4.2 mmol/L (3.5-5.1) 3.7 mmol/L (3.5-5.1) Chloride Level 103 mmol/L (98-107) 102 mmol/L (98-107) Carbon Dioxide Level 28 mmol/L (21-32) 28 mmol/L (21-32) Anion Gap 6 (6-14) 7 (6-14) Blood Urea Nitrogen 10 mg/dL (7-20) 12 mg/dL (7-20) Creatinine 0.7 mg/dL (0.6-1.0) 0.8 mg/dL (0.6-1.0) Estimated GFR (Cockcroft-Gault) 83.7 71.8 BUN/Creatinine Ratio 14 (6-20) Glucose Level 104 mg/dL (70-99) 105 mg/dL (70-99) Calcium Level 9.2 mg/dL (8.5-10.1) 8.7 mg/dL (8.5-10.1) Magnesium Level 2.0 mg/dL (1.8-2.4) Total Bilirubin 0.2 mg/dL (0.2-1.0) Aspartate Amino Transf (AST/SGOT) 20 U/L (15-37) Alanine Aminotransferase (ALT/SGPT) 17 U/L (14-59) Alkaline Phosphatase 105 U/L (46-116) Troponin I Quantitative < 0.017 ng/mL (0.000-0.055) < 0.017 ng/mL (0.000-0.055) < 0.017 ng/mL (0.000-0.055) PK-Kgn-H-Type Natriuretic Peptide 136 pg/mL (0-124) Total Protein 7.1 g/dL (6.4-8.2) Albumin 3.1 g/dL (3.4-5.0) Albumin/Globulin Ratio 0.8 (1.0-1.7) Assessment and Plan Assessmemt and Plan Problems Medical Problems: (1) CAD (coronary artery disease) Status: Acute (2) Chest pain Status: Acute Comment Review of Relevant I have reviewed the following items marvin (where applicable) has been applied. Labs Laboratory Tests Test 07/13/19 16:25 07/13/19 20:40 07/13/19 23:20 07/14/19 03:35 White Blood Count 5.9 x10^3/uL (4.0-11.0) Red Blood Count 4.72 x10^6/uL (3.50-5.40) Hemoglobin 14.2 g/dL (12.0-15.5) Hematocrit 41.8 % (36.0-47.0) Mean Corpuscular Volume 89 fL (79-100) Mean Corpuscular Hemoglobin 30 pg (25-35) Mean Corpuscular Hemoglobin Concent 34 g/dL (31-37) Red Cell Distribution Width 14.3 % (11.5-14.5) Platelet Count 256 x10^3/uL (140-400) Neutrophils (%) (Auto) 57 % (31-73) Lymphocytes (%) (Auto) 32 % (24-48) Monocytes (%) (Auto) 7 % (0-9) Eosinophils (%) (Auto) 3 % (0-3) Basophils (%) (Auto) 1 % (0-3) Neutrophils # (Auto) 3.4 x10^3/uL (1.8-7.7) Lymphocytes # (Auto) 1.9 x10^3/uL (1.0-4.8) Monocytes # (Auto) 0.4 x10^3/uL (0.0-1.1) Eosinophils # (Auto) 0.2 x10^3/uL (0.0-0.7) Basophils # (Auto) 0.1 x10^3/uL (0.0-0.2) D-Dimer (Arlene) 0.99 ug/mlFEU (0.00-0.50) Sodium Level 137 mmol/L (136-145) 137 mmol/L (136-145) Potassium Level 4.2 mmol/L (3.5-5.1) 3.7 mmol/L (3.5-5.1) Chloride Level 103 mmol/L (98-107) 102 mmol/L (98-107) Carbon Dioxide Level 28 mmol/L (21-32) 28 mmol/L (21-32) Anion Gap 6 (6-14) 7 (6-14) Blood Urea Nitrogen 10 mg/dL (7-20) 12 mg/dL (7-20) Creatinine 0.7 mg/dL (0.6-1.0) 0.8 mg/dL (0.6-1.0) Estimated GFR (Cockcroft-Gault) 83.7 71.8 BUN/Creatinine Ratio 14 (6-20) Glucose Level 104 mg/dL (70-99) 105 mg/dL (70-99) Calcium Level 9.2 mg/dL (8.5-10.1) 8.7 mg/dL (8.5-10.1) Magnesium Level 2.0 mg/dL (1.8-2.4) Total Bilirubin 0.2 mg/dL (0.2-1.0) Aspartate Amino Transf (AST/SGOT) 20 U/L (15-37) Alanine Aminotransferase (ALT/SGPT) 17 U/L (14-59) Alkaline Phosphatase 105 U/L (46-116) Troponin I Quantitative < 0.017 ng/mL (0.000-0.055) < 0.017 ng/mL (0.000-0.055) < 0.017 ng/mL (0.000-0.055) PS-Zjm-P-Type Natriuretic Peptide 136 pg/mL (0-124) Total Protein 7.1 g/dL (6.4-8.2) Albumin 3.1 g/dL (3.4-5.0) Albumin/Globulin Ratio 0.8 (1.0-1.7) Laboratory Tests Test 07/13/19 16:25 07/13/19 20:40 07/13/19 23:20 07/14/19 03:35 White Blood Count 5.9 x10^3/uL (4.0-11.0) Red Blood Count 4.72 x10^6/uL (3.50-5.40) Hemoglobin 14.2 g/dL (12.0-15.5) Hematocrit 41.8 % (36.0-47.0) Mean Corpuscular Volume 89 fL (79-100) Mean Corpuscular Hemoglobin 30 pg (25-35) Mean Corpuscular Hemoglobin Concent 34 g/dL (31-37) Red Cell Distribution Width 14.3 % (11.5-14.5) Platelet Count 256 x10^3/uL (140-400) Neutrophils (%) (Auto) 57 % (31-73) Lymphocytes (%) (Auto) 32 % (24-48) Monocytes (%) (Auto) 7 % (0-9) Eosinophils (%) (Auto) 3 % (0-3) Basophils (%) (Auto) 1 % (0-3) Neutrophils # (Auto) 3.4 x10^3/uL (1.8-7.7) Lymphocytes # (Auto) 1.9 x10^3/uL (1.0-4.8) Monocytes # (Auto) 0.4 x10^3/uL (0.0-1.1) Eosinophils # (Auto) 0.2 x10^3/uL (0.0-0.7) Basophils # (Auto) 0.1 x10^3/uL (0.0-0.2) D-Dimer (Arlene) 0.99 ug/mlFEU (0.00-0.50) Sodium Level 137 mmol/L (136-145) 137 mmol/L (136-145) Potassium Level 4.2 mmol/L (3.5-5.1) 3.7 mmol/L (3.5-5.1) Chloride Level 103 mmol/L (98-107) 102 mmol/L (98-107) Carbon Dioxide Level 28 mmol/L (21-32) 28 mmol/L (21-32) Anion Gap 6 (6-14) 7 (6-14) Blood Urea Nitrogen 10 mg/dL (7-20) 12 mg/dL (7-20) Creatinine 0.7 mg/dL (0.6-1.0) 0.8 mg/dL (0.6-1.0) Estimated GFR (Cockcroft-Gault) 83.7 71.8 BUN/Creatinine Ratio 14 (6-20) Glucose Level 104 mg/dL (70-99) 105 mg/dL (70-99) Calcium Level 9.2 mg/dL (8.5-10.1) 8.7 mg/dL (8.5-10.1) Magnesium Level 2.0 mg/dL (1.8-2.4) Total Bilirubin 0.2 mg/dL (0.2-1.0) Aspartate Amino Transf (AST/SGOT) 20 U/L (15-37) Alanine Aminotransferase (ALT/SGPT) 17 U/L (14-59) Alkaline Phosphatase 105 U/L (46-116) Troponin I Quantitative < 0.017 ng/mL (0.000-0.055) < 0.017 ng/mL (0.000-0.055) < 0.017 ng/mL (0.000-0.055) QH-Uwa-Z-Type Natriuretic Peptide 136 pg/mL (0-124) Total Protein 7.1 g/dL (6.4-8.2) Albumin 3.1 g/dL (3.4-5.0) Albumin/Globulin Ratio 0.8 (1.0-1.7) Medications Current Medications Diazepam (Valium) 5 mg 1X ONCE PO Last administered on 07/13/19at 13:47; Start 07/13/19 at 13:00; Stop 07/13/19 at 13:01; Status DC Aspirin (Children'S Aspirin) 324 mg 1X ONCE PO ; Start 07/13/19 at 13:00; Stop 07/13/19 at 13:01; Status DC Morphine Sulfate (Morphine Sulfate) 4 mg 1X ONCE IV Last administered on 07/13/19at 13:50; Start 07/13/19 at 13:00; Stop 07/13/19 at 13:01; Status DC Nitroglycerin (Nitro-Bid Oint) 1 inch 1X ONCE TP Last administered on 07/13/19at 13:48; Start 07/13/19 at 13:15; Stop 07/13/19 at 13:16; Status DC Morphine Sulfate (Morphine Sulfate) 4 mg PRN Q6HRS ONCE IV Last administered on 07/13/19at 21:07; Start 07/13/19 at 17:30; Stop 07/13/19 at 17:31; Status DC Ondansetron HCl (Zofran) 4 mg PRN Q6HRS ONCE IM ; Start 07/13/19 at 17:30; Stop 07/13/19 at 17:31; Status DC Aspirin (Boubacar Aspirin) 325 mg DAILY PO ; Start 07/14/19 at 09:00 EZETIMIBE (Zetia) 10 mg QHS PO Last administered on 07/14/19at 00:15; Start 07/13/19 at 21:00 Acetaminophen/ Hydrocodone Bitart (Lortab 5/325) 1 tab PRN Q4HRS PRN PO MODERATE PAIN Last administered on 07/14/19at 01:05; Start 07/13/19 at 17:30 Nitroglycerin (Nitrostat) 0.4 mg PRN DAILY SL ; Start 07/13/19 at 17:30 Potassium Chloride (Klor-Con) 20 meq DAILY PO ; Start 07/14/19 at 09:00 Sucralfate (Carafate) 1 gm QIDACHS PO Last administered on 07/14/19at 00:17; Start 07/13/19 at 17:30 Trazodone HCl (Desyrel) 150 mg DAILY PO ; Start 07/14/19 at 09:00; Stop 07/13/19 at 20:21; Status DC Pantoprazole Sodium (Protonix) 40 mg BIDAC PO Last administered on 07/13/19at 18:40; Start 07/13/19 at 17:30 Atorvastatin Calcium (Lipitor) 80 mg QHS PO Last administered on 07/14/19at 00:16; Start 07/13/19 at 21:00 Influenza Virus Vaccine Quadrival (Afluria Quad 2019-20 (3yr Up) Syringe) 0.5 ml ONCE ONCE VAX IM ; Start 07/14/19 at 09:00; Stop 07/14/19 at 09:01 Trazodone HCl (Desyrel) 300 mg QHS PO Last administered on 07/14/19at 00:16; Start 07/13/19 at 21:00 Morphine Sulfate (Morphine Sulfate) 4 mg PRN Q6HRS PRN IV MODERATE TO SEVERE PAIN; Start 07/13/19 at 20:30 Enoxaparin Sodium (Lovenox 40mg Syringe) 40 mg Q24H SQ Last administered on 07/14/19at 00:15; Start 07/13/19 at 21:00 Clonazepam (KlonoPIN) 1 mg PRN TID PRN PO ANXIETY / AGITATION Last administered on 07/14/19at 00:16; Start 07/13/19 at 23:15 Lisinopril (Prinivil) 2.5 mg DAILY PO Last administered on 07/14/19at 00:17; Start 07/13/19 at 23:30 Iohexol (Omnipaque 350 Mg/ml) 90 ml 1X ONCE IV Last administered on 07/13/19at 23:48; Start 07/13/19 at 23:30; Stop 07/13/19 at 23:31; Status DC Info (CONTRAST GIVEN -- Rx MONITORING) 1 each PRN DAILY PRN MC SEE COMMENTS; Start 07/13/19 at 23:15; Stop 07/15/19 at 23:14 Metoprolol Tartrate (Lopressor) 25 mg BID PO ; Start 07/14/19 at 09:00 Throat Lozenges (Cepacol Sore Throat Lozenge) 1 parminder PRN Q2HRS PRN PO SORE THROAT; Start 07/14/19 at 06:45 Active Scripts Active Carafate (Sucralfate) 1 Gm Tablet 1 Tab PO QID Protonix (Pantoprazole Sodium) 20 Mg Tablet.dr 40 Mg PO BID 30 Days Erythrocin Stearate (Erythromycin Stearate) 250 Mg Tablet 250 Mg PO TIDAC 30 Days Reported Potassium Chloride 20 Meq Tab.er.prt 20 Meq PO DAILY Clonazepam 1 Mg Tablet 1 Mg PO TID PRN Aspirin 325 Mg Tablet 325 Mg PO DAILY Zetia (Ezetimibe) 10 Mg Tablet 10 Mg PO QHS Trazodone Hcl 100 Mg Tablet 150 Mg PO PRN DAILY Nitrostat (Nitroglycerin) 0.4 Mg Tab.subl 0.4 Mg SL PRN DAILY Metoprolol Succinate ( Xl ) (Metoprolol Succinate) 25 Mg Tab.er.24h 25 Mg PO BID Lisinopril 2.5 Mg Tablet 2.5 Mg PO DAILY Hydrocodone-Apap 5-325 (Hydrocodone Bit/Acetaminophen) 1 Each Tablet 1 Each PO PRN Q4HRS Furosemide 40 Mg Tablet 40 Mg PO PRN DAILY Crestor (Rosuvastatin Calcium) 20 Mg Tablet 20 Mg PO QHS Vitals/I & O Vital Sign - Last 24 Hours 07/13/19 07/13/19 07/13/19 07/13/19 12:35 13:07 13:37 13:48 Temp 98.2 98.2 Pulse 87 82 82 80 Resp 19 B/P (MAP) 156/78 (104) 115/95 (102) 147/77 (100) 147/77 Pulse Ox 96 96 94 O2 Delivery Room Air Room Air Room Air 07/13/19 07/13/19 07/13/19 07/13/19 13:50 14:37 15:07 15:37 Pulse 82 84 84 Resp 18 18 17 17 B/P (MAP) 129/63 (85) 178/74 (108) 172/85 (114) Pulse Ox 96 94 98 93 O2 Delivery Room Air Room Air Room Air Room Air 07/13/19 07/13/19 07/13/19 07/13/19 16:37 17:07 17:37 17:48 Pulse 84 88 92 Resp 19 18 17 18 B/P (MAP) 143/63 (89) 153/77 (102) 142/67 (92) Pulse Ox 96 96 96 95 O2 Delivery Room Air Room Air Room Air Room Air 07/13/19 07/13/19 07/13/19 07/13/19 18:07 18:37 19:10 20:00 Temp 97.9 97.9 Pulse 90 86 91 Resp 19 18 22 B/P (MAP) 148/67 (94) 147/81 (103) 156/99 (118) Pulse Ox 96 97 94 O2 Delivery Room Air Room Air Room Air Room Air 07/13/19 07/13/19 07/14/19 07/14/19 21:07 23:12 00:17 02:05 Temp 97.7 97.7 Pulse 89 89 Resp 16 B/P (MAP) 144/87 (106) 144/87 Pulse Ox 92 O2 Delivery Room Air Room Air Room Air 07/14/19 07/14/19 07/14/19 07/14/19 03:56 04:08 07:00 07:58 Temp 97.6 98.0 97.6 98.0 Pulse 95 95 Resp 16 16 B/P (MAP) 116/67 (83) 104/59 (74) Pulse Ox 93 93 O2 Delivery Room Air Room Air Room Air Room Air Intake and Output 07/13/19 07/13/19 07/14/19 15:00 23:00 07:00 Intake Total 0 ml 200 ml Balance 0 ml 200 ml YOEL KISER MD Jul 14, 2019 08:14
--- NOTE | 2019-07-14 08:25 | RAD ---
STUDY: VENOUS LOWER EXT BILATERAL INDICATION: Pain, swelling and elevated d-dimer. TECHNIQUE: Color-flow and pulsed wave duplex ultrasound with compression of venous structures of the bilateral lower extremities. COMPARISON: None Available. FINDINGS: Duplex ultrasound with compression of the deep venous structures of the bilateral lower extremities from the common femoral vein through the popliteal vein is negative for DVT. The posterior tibial and peroneal veins are segmentally visualized and patent where seen. Normal venous waveforms and augmentation are noted throughout. IMPRESSION: No deep venous thrombosis seen throughout either lower extremity. Electronically signed by: YVONNE REVELES MD (07/14/2019 8:23 AM) [facility]
--- NOTE | 2019-07-14 08:31 | RAD ---
EXAM: CT chest with contrast - pulmonary embolus protocol CLINICAL HISTORY: Chest and back pain, tachycardia, elevated d dimer COMPARISON: None. TECHNIQUE: CT of the chest following the administration of intravenous contrast during the pulmonary arterial phase. Axial, coronal and sagittal reformatted images were generated including MIP images. ---PQRS compliance statement - One or more of the following individualized dose reduction techniques were utilized for this study: 1. Automated exposure control 2. Adjustment of the mA and/or kV according to patient size 3. Use of iterative reconstruction technique--- FINDINGS: CHEST: Diagnostic quality: Suboptimal contrast bolus timing. Pulmonary emboli: No pulmonary emboli to the level of the lobar branches. More peripheral vessels are not well assessed. Right heart strain: None Pulmonary arteries: Normal in caliber. Small to moderate hiatal hernia. Heart is not enlarged. No pericardial effusion. Coronary artery calcifications are seen. Pacer leads are seen within the heart. Prominent pericardial recess these are seen. No mediastinal lymphadenopathy. Prominent bilateral hilar lymph nodes are seen measuring less than 1 cm in short axis. Dependent opacities bilaterally likely atelectasis. Emphysematous changes are seen. No suspicious lung nodule or mass is noted. Visualized Upper abdomen: Cholecystectomy clips are seen. Bones: MIP reconstructions limit the evaluation of the osseous structures. Within these constraints, no definite aggressive osseous lesion is identified. Degenerative changes of the spine are seen. IMPRESSION: 1. Suboptimal contrast bolus timing. Within these constraints, no pulmonary emboli to the level of the lobar branches. More peripheral vessels are not well assessed. 2. Emphysematous changes are seen bilaterally. 3. No lobar consolidation. Minimal dependent opacities likely atelectasis. Electronically signed by: Maco Falcon MD (07/14/2019 8:28 AM) [id number]
[2019-07-14] MEDS: PANTOPRAZOLE 40 MG TABLET.DR. PO SCH ×2 (08:38→16:30)
[2019-07-14] MEDS ORDERED: FLU VAX QS 2019-20 (36MOS+)/PF 0.5 ML SYRINGE. VAX IM ONE (09:00)
[2019-07-14] MEDS ORDERED: ASPIRIN 325 MG TABLET PO SCH (09:00)
[2019-07-14] MEDS ORDERED: traZODone 50 MG TABLET. PO SCH (09:00)
[2019-07-14] MEDS ORDERED: POTASSIUM CHLORIDE 20 MEQ TABLET.ER. PO SCH (09:00)
[2019-07-14] MEDS ORDERED: METOPROLOL TART IMMED RELEASE 25 MG TABLET. PO SCH (09:00)
[2019-07-14 11:00] VITALS: BP 95/64
--- NOTE | 2019-07-14 11:24 | PDOC2 ---
IRENA TOWNSEND OLERICULTURE PROFESSOR 07/14/19 1124: CARDIAC CONSULT DATE OF CONSULT Date of Consult DATE: 07/14/19 TIME: 11:03 REASON FOR CONSULT Reason for Consult: Chest pain, multiple stents REFERRING PHYSICIAN Referring Physician: Ravi SOURCE Source: Chart review, Patient HISTORY OF PRESENT ILLNESS HISTORY OF PRESENT ILLNESS This is a pleasant 68 yo female admitted for complains of back pain. Reports that this is to her mid upper back mainly to her left medial region of her left scapula which is reproducible with palpation. This do radiate to midchest plus whe has been having daily heartburn and dior not take any H2 yaniv or PPI. No falls or injury but 2 days prior to this pain occuring 2 days ago she moves a couch to allow [facility] tree placement. No n/v. She is compliant with her medications. No diaphoresis or palpitations. She has PPM and was placed about 2009 due to asystolic episode. She used to see Dr. Scales. PAST MEDICAL HISTORY Cardiovascular: CAD, CHF, HTN, Hyperlipidemia Pulmonary: Asthma CENTRAL NERVOUS SYSTEM: CVA, Migraine GI: GERD ( Reflux esophagitis, ), Other (Presbyesophagus) Heme/Onc: Other (hepatic steatosi) Hepatobiliary: Other (hpatic steatosis) Psych: Anxiety, Other (insomnia, takes belsomra) Musculoskeletal: Osteoarthritis Rheumatologic: Fibromyalgia, Rheumatoid arthritis Infectious disease: No pertinent hx ENT: No pertinent hx Renal/: No pertinent hx Endocrine: No pertinent hx Dermatology: No pertinent hx PAST SURGICAL HISTORY Past Surgical History: Pacemaker, Appendectomy, Cholecystectomy, Hysterectomy, Other (PCI;RCA stents; musa fundoplications) FAMILY HISTORY Family History: Other (mother with PE) SOCIAL HISTORY Smoke: Quit ALCOHOL: none Drugs: None Lives: with Family CURRENT MEDICATIONS CURRENT MEDICATIONS Current Medications Medications (Trade) Dose Ordered Sig/Jeannine Route PRN Reason Start Time Stop Time Status Last Admin Dose Admin Diazepam (Valium) 5 mg 1X ONCE PO 07/13/19 13:00 07/13/19 13:01 DC 07/13/19 13:47 Morphine Sulfate (Morphine Sulfate) 4 mg 1X ONCE IV 07/13/19 13:00 07/13/19 13:01 DC 07/13/19 13:50 Nitroglycerin (Nitro-Bid Oint) 1 inch 1X ONCE TP 07/13/19 13:15 07/13/19 13:16 DC 07/13/19 13:48 Morphine Sulfate (Morphine Sulfate) 4 mg PRN Q6HRS ONCE IV 07/13/19 17:30 07/13/19 17:31 DC 07/13/19 21:07 Aspirin (Boubacar Aspirin) 325 mg DAILY PO 07/14/19 09:00 07/14/19 08:38 EZETIMIBE (Zetia) 10 mg QHS PO 07/13/19 21:00 07/14/19 00:15 Acetaminophen/ Hydrocodone Bitart (Lortab 5/325) 1 tab PRN Q4HRS PRN PO MODERATE PAIN 07/13/19 17:30 07/14/19 08:40 Potassium Chloride (Klor-Con) 20 meq DAILY PO 07/14/19 09:00 07/14/19 08:40 Sucralfate (Carafate) 1 gm QIDACHS PO 07/13/19 17:30 07/14/19 08:40 Pantoprazole Sodium (Protonix) 40 mg BIDAC PO 07/13/19 17:30 07/14/19 08:38 Atorvastatin Calcium (Lipitor) 80 mg QHS PO 07/13/19 21:00 07/14/19 00:16 Trazodone HCl (Desyrel) 300 mg QHS PO 07/13/19 21:00 07/14/19 00:16 Enoxaparin Sodium (Lovenox 40mg Syringe) 40 mg Q24H SQ 07/13/19 21:00 07/14/19 00:15 Clonazepam (KlonoPIN) 1 mg PRN TID PRN PO ANXIETY / AGITATION 07/13/19 23:15 07/14/19 00:16 Lisinopril (Prinivil) 2.5 mg DAILY PO 07/13/19 23:30 07/14/19 08:41 Iohexol (Omnipaque 350 Mg/ml) 90 ml 1X ONCE IV 07/13/19 23:30 07/13/19 23:31 DC 07/13/19 23:48 Metoprolol Tartrate (Lopressor) 25 mg BID PO 07/14/19 09:00 07/14/19 08:39 ALLERGIES ALLERGIES: Coded Allergies: shellfish derived (Verified Allergy, Intermediate, SEE COMMENT FOR IODINE, 10/03/17) PT TOLERATES IODINE CONTRAST WITH NO PROBLEMS sulfamethoxazole (Verified Allergy, Intermediate, 10/03/17) trimethoprim (Verified Allergy, Intermediate, 10/03/17) ROS Review of System 14 point ROS evaluated with pertinent positives noted per HPI PHYSICAL EXAM General: Alert, Oriented X3, Cooperative, No acute distress HEENT: Atraumatic, Mucous membr. moist/pink Lungs: Clear to auscultation, Normal air movement Heart: Regular rate (SR), Normal S1, Normal S2, No murmurs Abdomen: Soft, No tenderness Extremities: No cyanosis, No edema Skin: No breakdown, No significant lesion Neuro: Normal speech, Sensation intact Psych/Mental Status: Mental status NL, Mood NL MUSCULOSKELETAL: Osteoarthritic changes both hands VITALS/I&O VITALS/I&O: Vital Signs Date Time Temp Pulse Resp B/P (MAP) Pulse Ox O2 Delivery O2 Flow Rate FiO2 07/14/19 08:41 95 104/59 07/14/19 08:40 Room Air 07/14/19 07:00 98.0 16 93 98.0 I & O 07/13/19 07/13/19 07/14/19 15:00 23:00 07:00 Intake Total 0 ml 200 ml Balance 0 ml 200 ml LABS Lab: Laboratory Tests Test 07/13/19 16:25 07/13/19 20:40 07/13/19 23:20 07/14/19 03:35 White Blood Count 5.9 x10^3/uL (4.0-11.0) Red Blood Count 4.72 x10^6/uL (3.50-5.40) Hemoglobin 14.2 g/dL (12.0-15.5) Hematocrit 41.8 % (36.0-47.0) Mean Corpuscular Volume 89 fL (79-100) Mean Corpuscular Hemoglobin 30 pg (25-35) Mean Corpuscular Hemoglobin Concent 34 g/dL (31-37) Red Cell Distribution Width 14.3 % (11.5-14.5) Platelet Count 256 x10^3/uL (140-400) Neutrophils (%) (Auto) 57 % (31-73) Lymphocytes (%) (Auto) 32 % (24-48) Monocytes (%) (Auto) 7 % (0-9) Eosinophils (%) (Auto) 3 % (0-3) Basophils (%) (Auto) 1 % (0-3) Neutrophils # (Auto) 3.4 x10^3/uL (1.8-7.7) Lymphocytes # (Auto) 1.9 x10^3/uL (1.0-4.8) Monocytes # (Auto) 0.4 x10^3/uL (0.0-1.1) Eosinophils # (Auto) 0.2 x10^3/uL (0.0-0.7) Basophils # (Auto) 0.1 x10^3/uL (0.0-0.2) D-Dimer (Arlene) 0.99 ug/mlFEU (0.00-0.50) H Sodium Level 137 mmol/L (136-145) 137 mmol/L (136-145) Potassium Level 4.2 mmol/L (3.5-5.1) 3.7 mmol/L (3.5-5.1) Chloride Level 103 mmol/L (98-107) 102 mmol/L (98-107) Carbon Dioxide Level 28 mmol/L (21-32) 28 mmol/L (21-32) Anion Gap 6 (6-14) 7 (6-14) Blood Urea Nitrogen 10 mg/dL (7-20) 12 mg/dL (7-20) Creatinine 0.7 mg/dL (0.6-1.0) 0.8 mg/dL (0.6-1.0) Estimated GFR (Cockcroft-Gault) 83.7 71.8 BUN/Creatinine Ratio 14 (6-20) Glucose Level 104 mg/dL (70-99) H 105 mg/dL (70-99) H Calcium Level 9.2 mg/dL (8.5-10.1) 8.7 mg/dL (8.5-10.1) Magnesium Level 2.0 mg/dL (1.8-2.4) Total Bilirubin 0.2 mg/dL (0.2-1.0) Aspartate Amino Transferase (AST) 20 U/L (15-37) Alanine Aminotransferase (ALT) 17 U/L (14-59) Alkaline Phosphatase 105 U/L (46-116) Troponin I Quantitative < 0.017 ng/mL (0.000-0.055) < 0.017 ng/mL (0.000-0.055) < 0.017 ng/mL (0.000-0.055) NF-Vfd-Q-Type Natriuretic Peptide 136 pg/mL (0-124) H Total Protein 7.1 g/dL (6.4-8.2) Albumin 3.1 g/dL (3.4-5.0) L Albumin/Globulin Ratio 0.8 (1.0-1.7) L Laboratory Tests 07/13/19 16:25 Laboratory Tests 07/13/19 16:25 07/14/19 03:35 ECHOCARDIOGRAM ECHOCARDIOGRAM <Conclusion> The left ventricular systolic function is normal and the ejection fraction is 55%. The left atrium is mildly dilated. The right atrium size is normal. There is a pacemaker wire seen in the right atrium. The aortic valve is trileaflet. The aortic valve is mildly sclerotic. Doppler and Color Flow revealed trace aortic regurgitation. Doppler and Color-flow revealed mild mitral regurgitation. Doppler and Color Flow revealed trace tricuspid regurgitation. The pulmonary valve is normal in structure and function. There is a very small pericardial effusion. DATE: 10/01/17 1630 STRESS TEST STRESS TEST Conclusion 1. Regadenoson cardioisotope stress test did not show any evidence of ischemia or infarct. 2. Normal left ventricular systolic function with ejection fraction calculated at 74%. 3. Low risk for cardiac events. DATE: 10/01/17 1407 HEART CATH HEART CATH Coronary Angiography The patient's coronary anatomy is right dominant. The left main coronary artery is a large size vessel without significant stenosis. The left main bifurcates to the left anterior descending and circumflex. The left anterior descending artery is a medium size vessel with intimal irregularities. The first diagonal branch is a small size vessel without significant stenosis. The second diagonal branch is a small size vessel without significant stenosis. The third diagonal branch is a small size vessel without significant stenosis. The circumflex artery is a small size vessel without significant stenosis. The first obtuse marginal branch is a small size vessel without significant stenosis. The second obtuse marginal branch is a small size vessel without significant stenosis. The right coronary artery is a large size vessel with diffuse calcification noted throughout this vessel. stents are open The right posterior descending artery is a medium size vessel without significant stenosis. Left Ventriculography The left ventricle is normal in size with normal contractility. The left ventricular ejection fraction is estimated to be 55%. The left ventricular end diastolic pressure is 22 mmHg. There was no gradient across the aortic valve upon pullback. Conclusion This pt has no significant CAD and the RCA stents are open. Recommend medical treatment Recommendations Medical Therapy DATE: 02/21/15 1636 ASSESSMENT/PLAN ASSESSMENT/PLAN 1. Atypical CP: noncardiac. suspect MSK and GERD exacerbation 2. GERD exacerbation: daily heart burn 3. CAD: past RCA stents, clinically stable 4. HTN: low end. muscle relaxant and opioids contributing. 5. HLP 6. HX of fibromyalgia and RA 7. PPM in situ: SR no acute changes. demand pacing, [employer]. Recommendations 1. Analgesic per PCP 2. Start on PPI 3. Will obtain outpt download and will obtain outpt TTE 4. Follow up in office as scheduled 5. Continue with ASA, statin. DC lisinopril and continue with metoprolol may lower dose if BP is too low. HARJIT DRIVER MD 07/14/19 1421: CARDIAC CONSULT ASSESSMENT/PLAN ASSESSMENT/PLAN Patient seen and examined. Agree with PRINTING GRAY CLOTH TENDER's assessment and plan. Symptoms most probably musculoskeletal. CAD status clinically stable. Plan ischemic evaluation as an outpatient. Follow-up with our office as scheduled for pacemaker check. Thank you for your consultation. IRENA TOWNSEND APRN Jul 14, 2019 11:24 HARJIT DRIVER MD Jul 14, 2019 14:21
[2019-07-14] MEDS ORDERED: PANTOPRAZOLE 40 MG TABLET.DR. PO SCH (12:00)
--- NOTE | 2019-07-14 12:33 | PDOC3 ---
Discharge Summary Date of Admission: Jul 13, 2019 Date of Discharge: Jul 14, 2019 Follow-Up: 3-5 days Admitting Diagnosis comment: DISCHARGE DX Assessment/Plan A/P: Chest pain - high risk for ACS, with d dimer elevated will check venous dopplers, CTPA as well. trend troponins, telemetry overnight. Consult cardiology OK WITH D/C 07/14 Left back pain - thoracic pain paraspinal, subscapular, only mildly reproducible Bilateral leg pain - with her extensive cardiac history she likely has PVD. With her chest pain and elevated CAD s/p stents x7 - high risk ACS given her history. Consult cardiology. trend troponins SSS s/p PPM - may need device interrogation Anxiety with Depression - she also has insomnia, has requested to take 300mg trazodone qhs like she takes at home and belsomra GERD - cont H2 yaniv High Cholesterol - cont statin Hypertension - cont home meds Migraines - prn nsaids FEN - Cardiac diet PPX - lovenox FULL CODE CARDIOLOGY CONSULT Dispo - inpatient for high risk ACS chest pain, elevated d dimer, moderate PE risk MPI NEG, BACK PAIN BETTER HOME 07/14 D/C PLANNING 24 MIN Vitals Vitals Vital Signs Date Time Temp Pulse Resp B/P (MAP) Pulse Ox O2 Delivery O2 Flow Rate FiO2 07/14/19 07:58 Room Air 07/14/19 07:00 98.0 95 16 104/59 (74) 93 98.0 Physical Exam General: Alert, Oriented X3, Cooperative, No acute distress Lungs: Clear Abdomen: Normal bowel sounds, Soft, No tenderness, No hepatosplenomegaly, No masses Skin: No rashes, No breakdown, No significant lesion Labs LABS STATUS: ADM IN ORD. PHYSICIAN: RAFAEL GLOVER MD REASON: Chest and back pain, tachycardia, elevated d dimer PROCEDURE: CT ANGIOGRAPHY CHEST EXAM: CT chest with contrast - pulmonary embolus protocol CLINICAL HISTORY: Chest and back pain, tachycardia, elevated d dimer COMPARISON: None. TECHNIQUE: CT of the chest following the administration of intravenous contrast during the pulmonary arterial phase. Axial, coronal and sagittal reformatted images were generated including MIP images. ---PQRS compliance statement - One or more of the following individualized dose reduction techniques were utilized for this study: 1. Automated exposure control 2. Adjustment of the mA and/or kV according to patient size 3. Use of iterative reconstruction technique--- FINDINGS: CHEST: Diagnostic quality: Suboptimal contrast bolus timing. Pulmonary emboli: No pulmonary emboli to the level of the lobar branches. More peripheral vessels are not well assessed. Right heart strain: None Pulmonary arteries: Normal in caliber. Small to moderate hiatal hernia. Heart is not enlarged. No pericardial effusion. Coronary artery calcifications are seen. Pacer leads are seen within the heart. Prominent pericardial recess these are seen. No mediastinal lymphadenopathy. Prominent bilateral hilar lymph nodes are seen measuring less than 1 cm in short axis. Dependent opacities bilaterally likely atelectasis. Emphysematous changes are seen. No suspicious lung nodule or mass is noted. Visualized Upper abdomen: Cholecystectomy clips are seen. Bones: MIP reconstructions limit the evaluation of the osseous structures. Within these constraints, no definite aggressive osseous lesion is identified. Degenerative changes of the spine are seen. IMPRESSION: 1. Suboptimal contrast bolus timing. Within these constraints, no pulmonary emboli to the level of the lobar branches. More peripheral vessels are not well assessed. 2. Emphysematous changes are seen bilaterally. 3. No lobar consolidation. Minimal dependent opacities likely atelectasis. Electronically signed by: Maco Falcon MD (07/14/2019 8:28 AM) [id number] PORTABLE CHEST 1V History: Chest pain Comparison: 09/30/2017 Findings: Single view of the chest is submitted. There is again dual lead left electronic cardiac device. Cardiac silhouette is stable. There is no new lobar consolidation, pleural fluid, pneumothorax. Impression: 1. No acute radiographic abnormality is identified. Electronically signed by: José Luz MD (07/13/2019 1:31 PM) [id number] DICTATED and SIGNED BY: JOSÉ LUZ MD DATE: 07/13/19 1339 FINAL DIAGNOSIS Problems Medical Problems: (1) CAD (coronary artery disease) Status: Acute (2) Chest pain Status: Acute Brief Hospital Course Ms. Beyer is a 68 old [sex] who presented with [ CHEST PAIN, BACK PAIN] CONDITION AT DISCHARGE: Improved Discharge Medications Current Medications Diazepam (Valium) 5 mg 1X ONCE PO Last administered on 07/13/19at 13:47; Start 07/13/19 at 13:00; Stop 07/13/19 at 13:01; Status DC Aspirin (Children'S Aspirin) 324 mg 1X ONCE PO ; Start 07/13/19 at 13:00; Stop 07/13/19 at 13:01; Status DC Morphine Sulfate (Morphine Sulfate) 4 mg 1X ONCE IV Last administered on 07/13/19at 13:50; Start 07/13/19 at 13:00; Stop 07/13/19 at 13:01; Status DC Nitroglycerin (Nitro-Bid Oint) 1 inch 1X ONCE TP Last administered on 07/13/19at 13:48; Start 07/13/19 at 13:15; Stop 07/13/19 at 13:16; Status DC Morphine Sulfate (Morphine Sulfate) 4 mg PRN Q6HRS ONCE IV Last administered on 07/13/19at 21:07; Start 07/13/19 at 17:30; Stop 07/13/19 at 17:31; Status DC Ondansetron HCl (Zofran) 4 mg PRN Q6HRS ONCE IM ; Start 07/13/19 at 17:30; Stop 07/13/19 at 17:31; Status DC Aspirin (Boubacar Aspirin) 325 mg DAILY PO Last administered on 07/14/19at 08:38; Start 07/14/19 at 09:00 EZETIMIBE (Zetia) 10 mg QHS PO Last administered on 07/14/19at 00:15; Start 07/13/19 at 21:00 Acetaminophen/ Hydrocodone Bitart (Lortab 5/325) 1 tab PRN Q4HRS PRN PO MODERATE PAIN Last administered on 07/14/19at 08:40; Start 07/13/19 at 17:30 Nitroglycerin (Nitrostat) 0.4 mg PRN DAILY SL ; Start 07/13/19 at 17:30 Potassium Chloride (Klor-Con) 20 meq DAILY PO Last administered on 07/14/19at 08:40; Start 07/14/19 at 09:00 Sucralfate (Carafate) 1 gm QIDACHS PO Last administered on 07/14/19at 12:19; Start 07/13/19 at 17:30 Trazodone HCl (Desyrel) 150 mg DAILY PO ; Start 07/14/19 at 09:00; Stop 07/13 at 20:21; Status DC Pantoprazole Sodium (Protonix) 40 mg BIDAC PO Last administered on 07/14/19at 08:38; Start 07/13/19 at 17:30 Atorvastatin Calcium (Lipitor) 80 mg QHS PO Last administered on 07/14/19at 00:16; Start 07/13/19 at 21:00 Influenza Virus Vaccine Quadrival (Afluria Quad 2019-20 (3yr Up) Syringe) 0.5 ml ONCE ONCE VAX IM ; Start 07/14/19 at 09:00; Stop 07/14/19 at 09:01; Status DC Trazodone HCl (Desyrel) 300 mg QHS PO Last administered on 07/14/19at 00:16; Start 07/13/19 at 21:00 Morphine Sulfate (Morphine Sulfate) 4 mg PRN Q6HRS PRN IV MODERATE TO SEVERE PAIN; Start 07/13/19 at 20:30 Enoxaparin Sodium (Lovenox 40mg Syringe) 40 mg Q24H SQ Last administered on 07/14/19at 00:15; Start 07/13/19 at 21:00 Clonazepam (KlonoPIN) 1 mg PRN TID PRN PO ANXIETY / AGITATION Last administered on 07/14/19at 00:16; Start 07/13/19 at 23:15 Lisinopril (Prinivil) 2.5 mg DAILY PO Last administered on 07/14/19at 08:41; Start 07/13/19 at 23:30; Stop 07/14/19 at 11:14; Status DC Iohexol (Omnipaque 350 Mg/ml) 90 ml 1X ONCE IV Last administered on 07/13/19at 23:48; Start 07/13/19 at 23:30; Stop 07/13/19 at 23:31; Status DC Info (CONTRAST GIVEN -- Rx MONITORING) 1 each PRN DAILY PRN MC SEE COMMENTS; Start 07/13/19 at 23:15; Stop 07/15/19 at 23:14 Metoprolol Tartrate (Lopressor) 25 mg BID PO Last administered on 07/14/19at 08:39; Start 07/14/19 at 09:00 Throat Lozenges (Cepacol Sore Throat Lozenge) 1 parminder PRN Q2HRS PRN PO SORE THROAT; Start 11/26/19 at 06:45 Pantoprazole Sodium (Protonix) 40 mg DAILYAC PO Last administered on 07/14/19at 12:19; Start 07/14/19 at 12:00 Active Scripts Active Carafate (Sucralfate) 1 Gm Tablet 1 Tab PO QID Protonix (Pantoprazole Sodium) 20 Mg Tablet.dr 40 Mg PO BID 30 Days Erythrocin Stearate (Erythromycin Stearate) 250 Mg Tablet 250 Mg PO TIDAC 30 Days Reported Potassium Chloride 20 Meq Tab.er.prt 20 Meq PO DAILY Clonazepam 1 Mg Tablet 1 Mg PO TID PRN Aspirin 325 Mg Tablet 325 Mg PO DAILY Zetia (Ezetimibe) 10 Mg Tablet 10 Mg PO QHS Trazodone Hcl 100 Mg Tablet 150 Mg PO PRN DAILY Nitrostat (Nitroglycerin) 0.4 Mg Tab.subl 0.4 Mg SL PRN DAILY Metoprolol Succinate ( Xl ) (Metoprolol Succinate) 25 Mg Tab.er.24h 25 Mg PO BID Lisinopril 2.5 Mg Tablet 2.5 Mg PO DAILY Hydrocodone-Apap 5-325 (Hydrocodone Bit/Acetaminophen) 1 Each Tablet 1 Each PO PRN Q4HRS Furosemide 40 Mg Tablet 40 Mg PO PRN DAILY Crestor (Rosuvastatin Calcium) 20 Mg Tablet 20 Mg PO QHS Vital Signs Vital Signs Date Time Temp Pulse Resp B/P (MAP) Pulse Ox O2 Delivery O2 Flow Rate FiO2 07/14/19 11:00 98.6 90 16 95/64 (74) 93 Room Air 98.6 Labs Laboratory Tests Test 07/13/19 16:25 07/13/19 20:40 07/13/19 23:20 07/14/19 03:35 White Blood Count 5.9 x10^3/uL (4.0-11.0) Red Blood Count 4.72 x10^6/uL (3.50-5.40) Hemoglobin 14.2 g/dL (12.0-15.5) Hematocrit 41.8 % (36.0-47.0) Mean Corpuscular Volume 89 fL (79-100) Mean Corpuscular Hemoglobin 30 pg (25-35) Mean Corpuscular Hemoglobin Concent 34 g/dL (31-37) Red Cell Distribution Width 14.3 % (11.5-14.5) Platelet Count 256 x10^3/uL (140-400) Neutrophils (%) (Auto) 57 % (31-73) Lymphocytes (%) (Auto) 32 % (24-48) Monocytes (%) (Auto) 7 % (0-9) Eosinophils (%) (Auto) 3 % (0-3) Basophils (%) (Auto) 1 % (0-3) Neutrophils # (Auto) 3.4 x10^3/uL (1.8-7.7) Lymphocytes # (Auto) 1.9 x10^3/uL (1.0-4.8) Monocytes # (Auto) 0.4 x10^3/uL (0.0-1.1) Eosinophils # (Auto) 0.2 x10^3/uL (0.0-0.7) Basophils # (Auto) 0.1 x10^3/uL (0.0-0.2) D-Dimer (Arlene) 0.99 ug/mlFEU (0.00-0.50) Sodium Level 137 mmol/L (136-145) 137 mmol/L (136-145) Potassium Level 4.2 mmol/L (3.5-5.1) 3.7 mmol/L (3.5-5.1) Chloride Level 103 mmol/L (98-107) 102 mmol/L (98-107) Carbon Dioxide Level 28 mmol/L (21-32) 28 mmol/L (21-32) Anion Gap 6 (6-14) 7 (6-14) Blood Urea Nitrogen 10 mg/dL (7-20) 12 mg/dL (7-20) Creatinine 0.7 mg/dL (0.6-1.0) 0.8 mg/dL (0.6-1.0) Estimated GFR (Cockcroft-Gault) 83.7 71.8 BUN/Creatinine Ratio 14 (6-20) Glucose Level 104 mg/dL (70-99) 105 mg/dL (70-99) Calcium Level 9.2 mg/dL (8.5-10.1) 8.7 mg/dL (8.5-10.1) Magnesium Level 2.0 mg/dL (1.8-2.4) Total Bilirubin 0.2 mg/dL (0.2-1.0) Aspartate Amino Transf (AST/SGOT) 20 U/L (15-37) Alanine Aminotransferase (ALT/SGPT) 17 U/L (14-59) Alkaline Phosphatase 105 U/L (46-116) Troponin I Quantitative < 0.017 ng/mL (0.000-0.055) < 0.017 ng/mL (0.000-0.055) < 0.017 ng/mL (0.000-0.055) GH-Jqj-P-Type Natriuretic Peptide 136 pg/mL (0-124) Total Protein 7.1 g/dL (6.4-8.2) Albumin 3.1 g/dL (3.4-5.0) Albumin/Globulin Ratio 0.8 (1.0-1.7) Triglycerides Level 262 mg/dL (0-150) Cholesterol Level 233 mg/dL (0-200) LDL Cholesterol, Calculated 134 mg/dL (0-100) VLDL Cholesterol, Calculated 52 mg/dL (0-40) Non-HDL Cholesterol Calculated 186 mg/dL (0-129) HDL Cholesterol 47 mg/dL (40-60) Cholesterol/HDL Ratio 5.0 Laboratory Tests Test 07/13/19 16:25 07/13/19 20:40 07/13/19 23:20 07/14/19 03:35 White Blood Count 5.9 x10^3/uL (4.0-11.0) Red Blood Count 4.72 x10^6/uL (3.50-5.40) Hemoglobin 14.2 g/dL (12.0-15.5) Hematocrit 41.8 % (36.0-47.0) Mean Corpuscular Volume 89 fL (79-100) Mean Corpuscular Hemoglobin 30 pg (25-35) Mean Corpuscular Hemoglobin Concent 34 g/dL (31-37) Red Cell Distribution Width 14.3 % (11.5-14.5) Platelet Count 256 x10^3/uL (140-400) Neutrophils (%) (Auto) 57 % (31-73) Lymphocytes (%) (Auto) 32 % (24-48) Monocytes (%) (Auto) 7 % (0-9) Eosinophils (%) (Auto) 3 % (0-3) Basophils (%) (Auto) 1 % (0-3) Neutrophils # (Auto) 3.4 x10^3/uL (1.8-7.7) Lymphocytes # (Auto) 1.9 x10^3/uL (1.0-4.8) Monocytes # (Auto) 0.4 x10^3/uL (0.0-1.1) Eosinophils # (Auto) 0.2 x10^3/uL (0.0-0.7) Basophils # (Auto) 0.1 x10^3/uL (0.0-0.2) D-Dimer (Arlene) 0.99 ug/mlFEU (0.00-0.50) Sodium Level 137 mmol/L (136-145) 137 mmol/L (136-145) Potassium Level 4.2 mmol/L (3.5-5.1) 3.7 mmol/L (3.5-5.1) Chloride Level 103 mmol/L (98-107) 102 mmol/L (98-107) Carbon Dioxide Level 28 mmol/L (21-32) 28 mmol/L (21-32) Anion Gap 6 (6-14) 7 (6-14) Blood Urea Nitrogen 10 mg/dL (7-20) 12 mg/dL (7-20) Creatinine 0.7 mg/dL (0.6-1.0) 0.8 mg/dL (0.6-1.0) Estimated GFR (Cockcroft-Gault) 83.7 71.8 BUN/Creatinine Ratio 14 (6-20) Glucose Level 104 mg/dL (70-99) 105 mg/dL (70-99) Calcium Level 9.2 mg/dL (8.5-10.1) 8.7 mg/dL (8.5-10.1) Magnesium Level 2.0 mg/dL (1.8-2.4) Total Bilirubin 0.2 mg/dL (0.2-1.0) Aspartate Amino Transf (AST/SGOT) 20 U/L (15-37) Alanine Aminotransferase (ALT/SGPT) 17 U/L (14-59) Alkaline Phosphatase 105 U/L (46-116) Troponin I Quantitative < 0.017 ng/mL (0.000-0.055) < 0.017 ng/mL (0.000-0.055) < 0.017 ng/mL (0.000-0.055) RQ-Mke-O-Type Natriuretic Peptide 136 pg/mL (0-124) Total Protein 7.1 g/dL (6.4-8.2) Albumin 3.1 g/dL (3.4-5.0) Albumin/Globulin Ratio 0.8 (1.0-1.7) Triglycerides Level 262 mg/dL (0-150) Cholesterol Level 233 mg/dL (0-200) LDL Cholesterol, Calculated 134 mg/dL (0-100) VLDL Cholesterol, Calculated 52 mg/dL (0-40) Non-HDL Cholesterol Calculated 186 mg/dL (0-129) HDL Cholesterol 47 mg/dL (40-60) Cholesterol/HDL Ratio 5.0 Allergies Allergies Coded Allergies Type Severity Reaction Last Updated Verified shellfish derived Allergy Intermediate SEE COMMENT FOR IODINE 10/03/17 Yes sulfamethoxazole Allergy Intermediate 10/03/17 Yes trimethoprim Allergy Intermediate 10/03/17 Yes Disposition/Orders: D/C to Home YOLE KISER MD Jul 14, 2019 12:33
--- NOTE | 2019-07-14 12:36 | DISCH ---
DISCHARGE INSTRUCTIONS Condition on Discharge Condition on Discharge: Stable Activity After Discharge Activity Instructions for Disc: Activity as tolerated Exercise Instruction after Dis: Walk 10 min, 3 x per day Driving Instructions after Dis: Do not drive today Diet after Discharge Diet after Discharge: Cardiac Checks after Discharge Checks after discharge: Check blood press - daily Contacting the DR. after DC Call your doctor for: If your condition worsens YOEL KISER MD Jul 14, 2019 12:35
[2019-07-14 15:00] VITALS: BP 113/71
--- NOTE | 2019-07-14 16:43 | NUR ---
pt is discharge home with self care at this time via wheelchair via [facility] [place]. [facility] is transporting pt to her home. pt is in stable condition. pt has all belongings with her. pt received discharge instructions and stated she had no further questions for me.
== END 2019-07-14 16:48 | disposition home or self-care (01) ==
LOC: ER 12:24 → ED HOLD 17:10 → 6 SOUTH 19:16
PROVIDERS: ADMIT Internal Medicine; ATTEND Internal Medicine
DX: I25.10 Atherosclerotic heart disease of native coronary artery without angina pectoris (principal); I25.2 Old myocardial infarction; M54.9 Dorsalgia, unspecified; K21.9 Gastro-esophageal reflux disease without esophagitis; E78.00 Pure hypercholesterolemia, unspecified; I11.0 Hypertensive heart disease with heart failure; I50.9 Heart failure, unspecified; G43.909 Migraine, unspecified, not intractable, without status migrainosus; E78.5 Hyperlipidemia, unspecified; F41.8 Other specified anxiety disorders; G47.00 Insomnia, unspecified; I49.5 Sick sinus syndrome; I73.9 Peripheral vascular disease, unspecified; J45.909 Unspecified asthma, uncomplicated; M79.7 Fibromyalgia; M06.9 Rheumatoid arthritis, unspecified; Z23 Encounter for immunization; Z86.73 Personal history of transient ischemic attack (TIA), and cerebral infarction without residual deficits; Z95.5 Presence of coronary angioplasty implant and graft; Z90.49 Acquired absence of other specified parts of digestive tract; Z90.710 Acquired absence of both cervix and uterus; Z79.82 Long term (current) use of aspirin; Z95.0 Presence of cardiac pacemaker; Z79.01 Long term (current) use of anticoagulants; Z79.899 Other long term (current) drug therapy
CPT/HCPCS: 36415; 71045; 71275; 80048; 80053; 80061; 83735; 83880; 84484; 85025; 85379; 90686; 93005; 93970; 96372; 96374; 96376; 99284; G0008; G0378; J1650; J2270; Q9967; 90471; G0379

== ENCOUNTER → 2019-08-05 | Outpatient (CLI) | payer MEDICARE ==
[2019-07-14 15:00] VITALS: BP 113/71
--- NOTE | 2019-08-05 11:25 | CARD ---
MR#: [id number] Date of Study: 08/05/2019 Ordering Physician: HARJIT DRIVER, Referring Physician: HARJIT DRIVER Tech: Jeri Naylor RDCS APPROVED REPORT EXAM: Two-dimensional and M-mode echocardiogram with Doppler and color Doppler. Other Information Quality : Good Technically limited study due to body habitus. INDICATION Hypertension/HCVD Chest Pain Pacemaker 2D DIMENSIONS RVDd2.2 (2.9-3.5cm)Left Atrium(2D)3.9 (1.6-4.0cm) IVSd0.8 (0.7-1.1cm)Aortic Root(2D)2.1 (2.0-3.7cm) LVDd4.9 (3.9-5.9cm)LVOT Diameter1.9 (1.8-2.4cm) PWd0.8 (0.7-1.1cm)LVDs3.0 (2.5-4.0cm) FS (%) 30.0 %SV77.0 ml LVEF(%)60.0 (>50%) Aortic Valve AoV Peak Edilberto.118.4cm/sAoV VTI24.4cm AO Peak GR.5.6mmHgLVOT VTI 17.73cm AO Mean GR.3mmHgAVA (VTI)2.10cm2 Mitral Valve MV E Uvechmrw72.5cm/sMV DECEL [id number] MV A Zktdvofc13.6cm/sE/A Ratio1.0 TDI Lateral E' P. V9.65cm/sMedial E' P. V6.50cm/s E/Lateral E'8.1E/Medial E'12.1 Tricuspid Valve TR P. Usjdfbvd833yb/sRAP CIYQCVRW7imBp TR Peak Gr.47zsGeNKZW82ksSf Pulmonary Vein S1 Tzwhvqfi32.2cm/sS2 Mvtbseos37.14cm/s D2 Yzpuqrnu05.1cm/s LEFT VENTRICLE The left ventricle is normal size. There is normal left ventricular wall thickness. The left ventricu lar systolic function is normal and the ejection fraction is within normal range. The Ejection Fracti on is 55-60%. There is normal LV segmental wall motion. Transmitral Doppler flow pattern is Grade I-a bnormal relaxation pattern. RIGHT VENTRICLE The right ventricle is normal size. The right ventricular systolic function is normal. There is a pac emaker lead in the right ventricle. ATRIA The left atrium size is normal. The right atrium size is normal. A pacemaker is seen in the right atr ium consistent with history. The interatrial septum is intact with no evidence for an atrial septal d efect or patent foramen ovale as noted on 2-D or Doppler imaging. AORTIC VALVE The aortic valve is calcified but opens well. Doppler and Color Flow revealed no significant aortic r egurgitation. There is no significant aortic valvular stenosis. MITRAL VALVE The mitral valve is calcified but opens well. Mitral annular calcification is mild. There is no evide nce of mitral valve prolapse. There is no mitral valve stenosis. Doppler and Color-flow revealed mild mitral regurgitation. TRICUSPID VALVE The tricuspid valve is normal in structure and function. Doppler and Color Flow revealed physiologica l tricuspid regurgitation. There is mild pulmonary hypertension. The PA pressure was estimated at 35 mmHg. There is no tricuspid valve stenosis. PULMONIC VALVE The pulmonic valve is not well visualized. Doppler and Color Flow revealed no pulmonic valvular regur gitation. There is no pulmonic valvular stenosis. GREAT VESSELS The aortic root is normal in size. The ascending aorta is normal in size. The IVC is normal in size a nd collapses >50% with inspiration. PERICARDIAL EFFUSION There is a trace circumferential pericardial effusion. Critical Notification Critical Value: No <Conclusion> The left ventricular systolic function is normal and the ejection fraction is within normal range. Th e Ejection Fraction is 55-60%. There is normal LV segmental wall motion. There is a pacemaker lead in the right ventricle. Signed by : Jin Ramirez, Electronically Approved : 08/05/2019 11:24:51
== END | disposition home or self-care (01) ==
LOC: ECHO 08:16
PROVIDERS: ATTEND Internal Medicine Cardiovascular Disease
DX: I08.3 Combined rheumatic disorders of mitral, aortic and tricuspid valves (principal); I11.0 Hypertensive heart disease with heart failure; I50.9 Heart failure, unspecified; I25.10 Atherosclerotic heart disease of native coronary artery without angina pectoris; M79.7 Fibromyalgia; Z79.01 Long term (current) use of anticoagulants; Z79.82 Long term (current) use of aspirin; Z79.899 Other long term (current) drug therapy; Z87.891 Personal history of nicotine dependence; Z90.49 Acquired absence of other specified parts of digestive tract; Z90.710 Acquired absence of both cervix and uterus
CPT/HCPCS: 93306

== ENCOUNTER → 2019-10-21 | Outpatient (CLI) | payer MEDICARE ==
[~2019-10-21] MED LIST changes: +TRAZ-123 PO; -TRAZ-86 PO
--- NOTE | 2019-10-21 14:37 | KCIC ---
PROCEDURE: CERVICAL SPINE 5V, LUMBAR SPINE MIN 4V STUDY DATE: 10/21/2019 CLINICAL INDICATION / HISTORY: Chronic neck pain and headaches with decreased range of motion.. TECHNIQUE: 5 VIEWS: AP, lateral and odontoid with bilateral oblique views COMPARISON: None currently available FINDINGS: Alignment is within normal limits. There is preservation of the normal cervical lordosis. Vertebral body heights and disc spaces are well maintained. The atlantoaxial joint is well maintained. No fracture or subluxation is identified. Multilevel facet hypertrophic changes however noted, most conspicuous on the left where at C4-C5, at least moderate foraminal narrowing is suggested on the oblique view. Prevertebral and paraspinous soft tissues are unremarkable. Partially imaged left chest pacemaker. IMPRESSION: Multilevel cervical degenerative spondylosis with moderate left C4-C5 bony foraminal stenosis due to combination of endplate osteophytic spurring and facet hypertrophic change. Electronically signed by: Guillermo Snyder MD (10/21/2019 2:35 PM) [id number]
== END ==
LOC: KCIC 08:45
PROVIDERS: ATTEND Family Medicine
DX: M47.812 Spondylosis without myelopathy or radiculopathy, cervical region (principal); M48.02 Spinal stenosis, cervical region; M46.02 Spinal enthesopathy, cervical region
CPT/HCPCS: 72050; 72110

== ENCOUNTER → 2019-11-05 | Outpatient (CLI) | payer MEDICARE ==
[~2019-11-05] MED LIST changes: +REGADENOSON 0.4 MG/5 ML DISP.SYRIN. IV ONE
--- NOTE | 2019-11-05 13:09 | RAD ---
MR#: [id number] Date of Study: 11/05/2019 Ordering Physician: HARJIT DRIVER Referring Physician: STEVIE CHURCH Tech: RT Ramon (R) (N) APPROVED REPORT Test Type: Pharmacological Stress Nurse/Tech: Jillian Kilpatrick R.N. Test Indications: cad Cardiac History: stents 2012, htn, pacemaker Medications: see ehr Medical History: see ehr Resting ECG: sr Resting Heart Rate: 75 bpm Resting Blood Pressure: 138/93mmHg Pretest Chest Pain: No chest pain Nurse/Tech Notes lungs cta, heart tones regular, good radail pulse Consent: The procedure was explained to the patient in lay terms. Informed consent was witnessed. Chencho eout was entered into [employer]. History and Stress Test performed by [facility] Details Pharmacologic stress testing was performed using 0.4mg per 5ml of regadenoson given intravenously ove r 7-10 seconds. Stress Symptoms No chest pain or symptoms. POST EXERCISE Reason for Termination: Infusion complete Target HR: No Max HR: 95 bpm Max Blood Pressure: 150/70mmHg Chest Pain: No. Arrhythmia: No. ST Change: No. INTERPRETATION Stress EKG Conclusion: No evidence of stress induced EKG changes. Imaging Protocol IMAGE PROTOCOL: Rest Tc-99m/stress Tc-99m 1 day Rest: Stress: Viability: Radiopharm.Tc99m OekjprsqxGw05e Sestamibi Ghyb05kCw 33mCi Duration 15min. 15min. Img Date 11/05/2019 11/05/2019 Inj-Img Nffd20kdm. 60min. Rest Admin Site:IV - Left ForearmAdministrator:RT Fortino Navarro)(N) Stress Admin Site: IV - Left ForearmAdministrator: SILVESTRE Young STRESS DATA End Diast. Vol.55.0mlAv. Heart Rate91.0bpm End Syst. Vol.15.0mlCO Index BSA0.0L/min Myocardial Mass93.0gEject. Qtnszfjl59.0% Stress Rates Pk. Fill Rate5.73EDV/secLVtime Pk. Fill 192.49msec Pk. Empty Rate5.91ESV/secLVtime Pk. Eject85.50msec 1/3 Pk. Fill1.04EDV/sec Stress Scores Regional WT0.00Summed WT0.00 Regional WM0.00Summed WM2.00 The rest and stress images show normal perfusion, normal contraction and thickening. LV Perf. Quant 17 Seg. SSS2.00 17 Seg. SRS1.00 17 Seg. SDS2.00 Stress Defect Extent (% LAD)0.00Rest Defect Extent (% LAD)0.00Rev. Defect Extent (% LAD)0.00 Stress Defect Extent (% LCX) 0.00Rest Defect Extent (% LCX)0.00Rev. Defect Extent (% LCX)0.00 Stress Defect Extent (% RCA)0.00Rest Defect Extent (% RCA)0.00Rev. Defect Extent (% RCA)0.00 Stress Defect Extent (% MADONNA)0.00Rest Defect Extent (% MADONNA)0.00Rev. Defect Extent (% MADONNA)0.00 Other Information Quality:Good Risk Assessment: Low Risk Conclusion 1. No evidence of EKG changes with stress testing. 2. Normal perfusion at stress/rest. 3. Low risk study. 4. EF > 60%. Signed by : Jin Ramirez, Electronically Approved : 11/05/2019 13:08:51
== END | disposition home or self-care (01) ==
LOC: NM 08:59
PROVIDERS: ATTEND Internal Medicine Cardiovascular Disease
DX: I25.10 Atherosclerotic heart disease of native coronary artery without angina pectoris (principal); I10 Essential (primary) hypertension; Z95.5 Presence of coronary angioplasty implant and graft; Z95.0 Presence of cardiac pacemaker
CPT/HCPCS: 78452; 93017; A9500; J2785